=== PATIENT | male | born 1930 | race Caucasian/White ===

== ENCOUNTER 2016-11-26 11:51 | Inpatient (IN) | payer MEDICARE, OTHER ==
[~2016-11-26] VITALS: Ht 182.9 cm; Wt 68.2 kg
[~2016-11-26 11:51] MED LIST: ALDACTONE25 MG PO; BACTRIM 400-801 TAB PO; BAYER CHEWABLE81 MG PO; CALCIUM 250+D T1 TAB PO; COMBIVENT RESPIM4 GM INH; COUMADIN3 MG PO; COUMADIN6 MG PO; CRESTOR5 MG PO; FERROUS SULFAT325 MG PO; FISH OIL 500 MG1 CAP PO; FLORAJEN3 CAPS460 MG PO; FOSINOPRIL SODI40 MG PO; GLUCOPHAGE1000 MG PO; GLUCOPHAGE500 MG PO; HYDROCODONE-APA1 TAB PO; LASIX20 MG PO; LASIX40 MG PO; LEVAQUIN250 MG PO; LEVAQUIN500 MG PO; MUCINEX600 MG PO; MULTIPLE VITAMI1 TA1 PO; SYNTHROID25 MCG PO; VITAMIN B COMPL1 TAB PO; ZPAK PO
[2016-11-26 12:56] LABS: BASOPHILS 0.3 % (0-2); EOSINOPHILS 2.6 % (0-7); IMMATURE GRANULOCYTES 0.3 % (0-5); LYMPHOCYTES 26.6 % (15-50); MCH 29.8 pg (26.0-34.0); MCHC 29.5 g/dL (31.0-37.0); NEUTROPHILS 58.2 % (40-80); RDW 19.5 % (11.5-14.5); WBC 6.5 10x3/uL (4.8-10.8)
[2016-11-26 13:06] LABS: APTT 39.3 SECONDS (22.8-39.4); INR 2.76 (0.85-1.17); PROTIME 29.3 SECONDS (11.6-15.0)
[2016-11-26 13:13] LABS: ALBUMIN 3.1 g/dL (3.4-5.0); ANION GAP 15.9 mmol/L (8-16); BILIRUBIN - TOTAL 0.42 mg/dL (0.2-1.3); CALCIUM 8.7 mg/dL (8.5-10.1); CARBON DIOXIDE 22.3 mmol/L (21.0-32.0); CREATININE - SERUM 1.9 mg/dL (0.6-1.3); POTASSIUM - SERUM 5.2 mmol/L (3.5-5.1); PROTEIN - SERUM 7.8 g/dL (6.4-8.2)
[2016-11-26 13:23] LABS: HEMATOCRIT 19.3 % (42.0-54.0); HEMOGLOBIN 5.7 g/dL (13.5-17.5); PLATELET COUNT 300 10x3/uL (130-400); RBC 1.91 10x6/uL (4.20-6.10)
[2016-11-26 17:41] VITALS: BP 124/53; BMI 20.4
--- NOTE | 2016-11-26 17:57 | NUR ---
PT AOX4 RESP EVEN AND NONLABORED LUNG SOUNDS CLEAR IV TO RIGHT FOREARM PATENT AND INTACT AT THIS TIME SRX2 BED AT LOWEST SETTING CALL LIGHT WITHIN REACH
--- NOTE | 2016-11-26 19:20 | NUR ---
RECIEVED SHIFT REPORT. PT IS LYING IN BED. ALERT AND ORIENTED AND ABLE TO VERBALIZE NEEDS. IV IS PATENT AND FLUIDS ARE RUNNING PER ORDER. IV IS PATENT AND BLOOD IS FLUSHING AT THIS TIME. PT IS AMBULATORY WITH ASSISTANCE OF PROSTHETIC. PT DENIES ANY PAIN AT THIS TIME. NO NEEDS ARE VERBALIZED AT THIS TIME. WILL CONTINUE TO MONITOR. SIDE RAILS ARE UP X 2. BED IS IN LOWEST POSITION. CALL LIGHT IS WITHIN REACH.
[2016-11-26 20:00] VITALS: BP 130/68
--- NOTE | 2016-11-26 20:52 | NUR ---
SHIFT ASSESSMENT COMPLETED. NIGHT MEDS GIVEN WITH NO PROBLEMS. NO NEEDS ARE VOICED. WILL MONITOR. SIDE RAILS X 2. BED LOW. CALL LIGHT IN REACH.
[2016-11-27] VITALS (11 sets, daily range): BP systolic 105–141; BP diastolic 46–69; Ht 182.9 cm; Wt 68.2 kg
--- NOTE | 2016-11-27 | NUR ---
LYING IN BED,WITHOUT DISTRESS.DENIES NEEDS AT PRESENT.CALL LIGHT IN REACH
--- NOTE | 2016-11-27 03:00 | NUR ---
RESTING NOW.REQUESTED DOOR BE CLOSED.STATES YELLING IS KEEPING HIM AWAKE. CALL LIGHT IN REACH
[2016-11-27 05:59] LABS: BASOPHILS 0.3 % (0-2); IMMATURE GRANULOCYTES 0.2 % (0-5); MCH 30.6 pg (26.0-34.0); MCHC 31.7 g/dL (31.0-37.0); MEAN PLATELET VOLUME 9.4 fL (7.4-10.4); MONOCYTES 20.1 % (2-11); NEUTROPHILS 53.4 % (40-80); PLATELET COUNT 277 10x3/uL (130-400); RDW 18.3 % (11.5-14.5); WBC 6.6 10x3/uL (4.8-10.8)
[2016-11-27 06:03] LABS: HEMATOCRIT 24.6 % (42.0-54.0); HEMOGLOBIN 7.8 g/dL (13.5-17.5); INR 2.99 (0.85-1.17); MCV 96.5 fL (80.0-100.0); PROTIME 31.3 SECONDS (11.6-15.0); RBC 2.55 10x6/uL (4.20-6.10)
[2016-11-27 06:13] LABS: ALBUMIN 2.7 g/dL (3.4-5.0); ANION GAP 12.7 mmol/L (8-16); BILIRUBIN - TOTAL 1.11 mg/dL (0.2-1.3); CALCIUM 8.1 mg/dL (8.5-10.1); CARBON DIOXIDE 22.3 mmol/L (21.0-32.0); CREATININE - SERUM 1.5 mg/dL (0.6-1.3); PROTEIN - SERUM 6.9 g/dL (6.4-8.2)
--- NOTE | 2016-11-27 06:25 | NUR ---
REMAINS WITHOUT NEEDS,WITHOUT CHANGE.CONT PLAN OF CARE
--- NOTE | 2016-11-27 07:30 | NUR ---
RECIEVED PT DURING WALKING ROUNDS. PT RESTING IN BED WITH NO COMPLAINTS OF PAIN OR DISCOMFORT AT THIS TIME. ASSESSMENT DONE PER FLOWSHEET. BED IN LOW POSITION AND CALL LIGHT WITHIN REACH. WILL CONTINUE TO MONITOR.
--- NOTE | 2016-11-27 12:00 | NUR ---
FIRST UNIT OF PRBC'S STARTED AT THIS TIME, BLOOD PRODUCT VERIFIED WITH SHERMAN BRIDGES LPN. WILL MONITOR VITALS PER PROTOCOL.
--- NOTE | 2016-11-27 14:35 | NUR ---
FIRST UNIT OF PRBC'S COMPLETED AND NO SIGNS OF TRANSFUSION REACTION NOTED. WILL CONTINUE TO MONITOR.
--- NOTE | 2016-11-27 19:45 | NUR ---
PATIENT RESTING IN BED AND DENIES NEEDS AT THIS TIME. BED IN LOWEST POSITION AND CALL LIGHT WITHIM REACH. ENCOURAGED THE PATIENT TO CALL IF HE HAS NEEDS.
[2016-11-28 00:10] VITALS: BP 115/57
--- NOTE | 2016-11-28 00:11 | NUR ---
PATIENT IS CONFUSED AT THIS TIME AND DOES NOT KNOW WHERE SHE IS. I REORIENTED THE PATIENT. PATIENT'S BED IN LOWEST POSITION, CALL LIGHT WITHIN REACH, AND BOX ALARM IS ON AND ATTACHED TO THE PATIENT. ENCOURAGED THE PATIENT TO CALL IF SHE HAS NEEDS.
[2016-11-28 04:00] VITALS: BP 118/53
[2016-11-28 06:19] LABS: BASOPHILS 0.3 % (0-2); EOSINOPHILS 3.8 % (0-7); IMMATURE GRANULOCYTES 0.2 % (0-5); LYMPHOCYTES 21.1 % (15-50); MCHC 32.1 g/dL (31.0-37.0); MEAN PLATELET VOLUME 9.5 fL (7.4-10.4); MONOCYTES 20.6 % (2-11); PLATELET COUNT 239 10x3/uL (130-400); WBC 6.6 10x3/uL (4.8-10.8)
[2016-11-28 06:25] LABS: HEMATOCRIT 30.2 % (42.0-54.0); HEMOGLOBIN 9.7 g/dL (13.5-17.5); MCV 93.5 fL (80.0-100.0); RBC 3.23 10x6/uL (4.20-6.10)
[2016-11-28 06:26] LABS: INR 2.75 (0.85-1.17); PROTIME 29.3 SECONDS (11.6-15.0)
[2016-11-28 06:35] LABS: ALBUMIN 2.7 g/dL (3.4-5.0); ANION GAP 10.6 mmol/L (8-16); BILIRUBIN - TOTAL 1.1 mg/dL (0.2-1.3); CREATININE - SERUM 1.5 mg/dL (0.6-1.3); POTASSIUM - SERUM 4.6 mmol/L (3.5-5.1); PROTEIN - SERUM 6.5 g/dL (6.4-8.2)
--- NOTE | 2016-11-28 07:30 | NUR ---
RECIEVED PT DURING WALKING ROUNDS. PT RESTING IN BED WITH NO COMPLAINTS OF PAIN OR DISCOMFORT. ASSESSMENT DONE PER FLOWSHEET. BED IN LOW POSITION AND CALL LIGHT WITHIN REACH. WILL CONTINUE TO MONITOR.
[2016-11-28 10:19] VITALS: BP 105/65
[2016-11-28 14:08] VITALS: BP 110/74
[2016-11-28] MEDS ORDERED: CARAFATE1 G PO (14:23)
[2016-11-28] MEDS ORDERED: PROTONIX40 MG PO (14:23)
--- NOTE | 2016-11-28 15:54 | NUR ---
IV REMOVED AND DISCHARGE INSTRUCTIONS GIVEN, PT DISCHARGED VIA WHEELCHAIR TO HOME WITH A FAMILY MEMBER.
== END 2016-11-28 15:55 | disposition home or self-care (01) | DRG 378 ==
LOC: D.ER 11:51 → D.MS 13:44
PROVIDERS: Emergency Medicine; Internal Medicine Gastroenterology; ADMIT Emergency Medicine
PROC: 0W3P8ZZ Control Bleeding in Gastrointestinal Tract, Via Natural or Artificial Opening Endoscopic (ICD-10-PCS; principal; 2016-11-26 15:45)
DX: K25.4 Chronic or unspecified gastric ulcer with hemorrhage (principal); I50.22 Chronic systolic (congestive) heart failure; D62 Acute posthemorrhagic anemia; K26.4 Chronic or unspecified duodenal ulcer with hemorrhage; I48.91 Unspecified atrial fibrillation; Z79.01 Long term (current) use of anticoagulants; I11.0 Hypertensive heart disease with heart failure; E11.65 Type 2 diabetes mellitus with hyperglycemia; Z79.84 Long term (current) use of oral hypoglycemic drugs; E78.5 Hyperlipidemia, unspecified; E03.9 Hypothyroidism, unspecified; E87.5 Hyperkalemia

== ENCOUNTER 2016-12-10 09:43 | Inpatient (IN) | payer MEDICARE, OTHER ==
[~2016-12-10] VITALS: Ht 182.9 cm; Wt 70.4 kg
[~2016-12-10 09:43] MED LIST changes: +CARAFATE1 G PO; +PROTONIX40 MG PO
[2016-12-10 10:37] LABS: BASOPHILS 0.4 % (0-2); EOSINOPHILS 5.2 % (0-7); HEMATOCRIT 28.9 % (42.0-54.0); IMMATURE GRANULOCYTES 0.2 % (0-5); LYMPHOCYTES 26.4 % (15-50); MCH 29.3 pg (26.0-34.0); MCHC 31.1 g/dL (31.0-37.0); MCV 94.1 fL (80.0-100.0); MEAN PLATELET VOLUME 9.7 fL (7.4-10.4); MONOCYTES 12.4 % (2-11); NEUTROPHILS 55.4 % (40-80); RBC 3.07 10x6/uL (4.20-6.10); RDW 16.3 % (11.5-14.5); WBC 4.8 10x3/uL (4.8-10.8)
[2016-12-10 10:43] LABS: PLATELET COUNT 183 10x3/uL (130-400)
[2016-12-10 11:07] LABS: APTT 61.8 SECONDS (22.8-39.4); INR 4.44 (0.85-1.17); PROTIME 42.9 SECONDS (11.6-15.0)
[2016-12-10 11:13] LABS: ALBUMIN 2.9 g/dL (3.4-5.0); ANION GAP 15.5 mmol/L (8-16); BILIRUBIN - TOTAL 0.48 mg/dL (0.2-1.3); CALCIUM 8.7 mg/dL (8.5-10.1); CARBON DIOXIDE 20.8 mmol/L (21.0-32.0); CREATININE - SERUM 1.6 mg/dL (0.6-1.3); POTASSIUM - SERUM 5.3 mmol/L (3.5-5.1); PROTEIN - SERUM 7.5 g/dL (6.4-8.2)
[2016-12-10 13:29] VITALS: BP 142/64; BMI 21.4
[2016-12-10 13:37] VITALS: BP 142/64
[2016-12-10 20:00] VITALS: BP 149/59
[2016-12-10 22:00] LABS: BASOPHILS 0.4 % (0-2); EOSINOPHILS 5.3 % (0-7); HEMATOCRIT 27.4 % (42.0-54.0); HEMOGLOBIN 8.5 g/dL (13.5-17.5); LYMPHOCYTES 29.6 % (15-50); MCH 29.3 pg (26.0-34.0); MCV 94.5 fL (80.0-100.0); MEAN PLATELET VOLUME 9.4 fL (7.4-10.4); MONOCYTES 17.7 % (2-11); PLATELET COUNT 173 10x3/uL (130-400); RDW 16.3 % (11.5-14.5); WBC 4.5 10x3/uL (4.8-10.8)
[2016-12-11] VITALS: BP 116/71
[2016-12-11 03:43] VITALS: BP 123/58
[2016-12-11 05:41] LABS: BASOPHILS 0.9 % (0-2); EOSINOPHILS 5.4 % (0-7); HEMATOCRIT 27.1 % (42.0-54.0); HEMOGLOBIN 8.6 g/dL (13.5-17.5); IMMATURE GRANULOCYTES 0.2 % (0-5); LYMPHOCYTES 29.4 % (15-50); MCH 30.1 pg (26.0-34.0); MCHC 31.7 g/dL (31.0-37.0); MCV 94.8 fL (80.0-100.0); MEAN PLATELET VOLUME 9.8 fL (7.4-10.4); MONOCYTES 14.3 % (2-11); NEUTROPHILS 49.8 % (40-80); PLATELET COUNT 181 10x3/uL (130-400); RBC 2.86 10x6/uL (4.20-6.10); RDW 16.4 % (11.5-14.5); WBC 4.4 10x3/uL (4.8-10.8)
[2016-12-11 05:59] LABS: ALBUMIN 2.7 g/dL (3.4-5.0); ANION GAP 17.4 mmol/L (8-16); BILIRUBIN - TOTAL 0.6 mg/dL (0.2-1.3); CALCIUM 8.9 mg/dL (8.5-10.1); CARBON DIOXIDE 20.1 mmol/L (21.0-32.0); CREATININE - SERUM 1.4 mg/dL (0.6-1.3); POTASSIUM - SERUM 5.5 mmol/L (3.5-5.1); PROTEIN - SERUM 6.9 g/dL (6.4-8.2)
[2016-12-11 08:18] VITALS: BP 129/46
[2016-12-11 13:00] VITALS: Ht 182.9 cm; Wt 70.4 kg
[2016-12-11 13:03] VITALS: BP 141/51
[2016-12-11 13:55] LABS: BASOPHILS 0.8 % (0-2); EOSINOPHILS 4.7 % (0-7); HEMATOCRIT 28.2 % (42.0-54.0); HEMOGLOBIN 8.8 g/dL (13.5-17.5); IMMATURE GRANULOCYTES 0.2 % (0-5); LYMPHOCYTES 25.5 % (15-50); MCH 29.7 pg (26.0-34.0); MCHC 31.2 g/dL (31.0-37.0); MCV 95.3 fL (80.0-100.0); MEAN PLATELET VOLUME 9.5 fL (7.4-10.4); MONOCYTES 15.5 % (2-11); NEUTROPHILS 53.3 % (40-80); PLATELET COUNT 176 10x3/uL (130-400); RBC 2.96 10x6/uL (4.20-6.10); RDW 16.3 % (11.5-14.5); WBC 4.7 10x3/uL (4.8-10.8)
[2016-12-11 14:20] LABS: INR 3.19 (0.85-1.17)
[2016-12-11 16:21] VITALS: BP 107/59
[2016-12-11 20:00] VITALS: BP 129/65
[2016-12-11 21:44] LABS: BASOPHILS 0.4 % (0-2); EOSINOPHILS 4.4 % (0-7); HEMATOCRIT 26.3 % (42.0-54.0); HEMOGLOBIN 8.2 g/dL (13.5-17.5); IMMATURE GRANULOCYTES 0.2 % (0-5); LYMPHOCYTES 23.5 % (15-50); MCH 29.4 pg (26.0-34.0); MCHC 31.2 g/dL (31.0-37.0); MCV 94.3 fL (80.0-100.0); MEAN PLATELET VOLUME 9.2 fL (7.4-10.4); NEUTROPHILS 54.5 % (40-80); PLATELET COUNT 176 10x3/uL (130-400); RBC 2.79 10x6/uL (4.20-6.10); RDW 16.2 % (11.5-14.5); WBC 4.8 10x3/uL (4.8-10.8)
[2016-12-12] VITALS (7 sets, daily range): BP systolic 114–139; BP diastolic 45–59
[2016-12-12 06:27] LABS: ALBUMIN 2.6 g/dL (3.4-5.0); ANION GAP 15.9 mmol/L (8-16); BILIRUBIN - TOTAL 0.5 mg/dL (0.2-1.3); CALCIUM 8.6 mg/dL (8.5-10.1); CARBON DIOXIDE 20.1 mmol/L (21.0-32.0); CREATININE - SERUM 1.3 mg/dL (0.6-1.3); PROTEIN - SERUM 6.7 g/dL (6.4-8.2)
[2016-12-13 04:04] VITALS: BP 132/62
[2016-12-13 05:16] LABS: BASOPHILS 0.8 % (0-2); EOSINOPHILS 5.7 % (0-7); HEMATOCRIT 23.9 % (42.0-54.0); LYMPHOCYTES 30.2 % (15-50); MCH 29.5 pg (26.0-34.0); MCV 95.2 fL (80.0-100.0); MEAN PLATELET VOLUME 10.3 fL (7.4-10.4); MONOCYTES 21.4 % (2-11); NEUTROPHILS 41.9 % (40-80); PLATELET COUNT 187 10x3/uL (130-400); RBC 2.51 10x6/uL (4.20-6.10); RDW 16.4 % (11.5-14.5); WBC 4.7 10x3/uL (4.8-10.8)
[2016-12-13 05:19] LABS: HEMOGLOBIN 7.4 g/dL (13.5-17.5)
[2016-12-13 05:40] LABS: ALBUMIN 2.5 g/dL (3.4-5.0); ANION GAP 14.4 mmol/L (8-16); BILIRUBIN - TOTAL 0.31 mg/dL (0.2-1.3); CALCIUM 8.2 mg/dL (8.5-10.1); CARBON DIOXIDE 21.3 mmol/L (21.0-32.0); CREATININE - SERUM 1.2 mg/dL (0.6-1.3); POTASSIUM - SERUM 4.7 mmol/L (3.5-5.1); PROTEIN - SERUM 6.7 g/dL (6.4-8.2)
[2016-12-13 08:57] VITALS: BP 129/59
[2016-12-13 12:35] VITALS: BP 120/50
[2016-12-13 15:25] VITALS: BP 118/54
[2016-12-13 19:00] VITALS: BP 137/64
[2016-12-14] VITALS: BP 142/64
[2016-12-14 04:00] VITALS: BP 120/49
[2016-12-14 05:06] LABS: INR 1.72 (0.85-1.17); PROTIME 20.1 SECONDS (11.6-15.0)
[2016-12-14 05:21] LABS: ALBUMIN 2.6 g/dL (3.4-5.0); ANION GAP 16.1 mmol/L (8-16); BILIRUBIN - TOTAL 0.9 mg/dL (0.2-1.3); CALCIUM 8.5 mg/dL (8.5-10.1); CARBON DIOXIDE 19.7 mmol/L (21.0-32.0); CREATININE - SERUM 1.1 mg/dL (0.6-1.3); POTASSIUM - SERUM 4.8 mmol/L (3.5-5.1); PROTEIN - SERUM 6.7 g/dL (6.4-8.2)
[2016-12-14 10:01] VITALS: BP 135/56
[2016-12-14 12:10] LABS: BASOPHILS 0.3 % (0-2); HEMATOCRIT 27.6 % (42.0-54.0); HEMOGLOBIN 8.8 g/dL (13.5-17.5); IMMATURE GRANULOCYTES 0.2 % (0-5); LYMPHOCYTES 21.9 % (15-50); MCH 30.6 pg (26.0-34.0); MCHC 31.9 g/dL (31.0-37.0); MCV 95.8 fL (80.0-100.0); MEAN PLATELET VOLUME 10.7 fL (7.4-10.4); MONOCYTES 21.2 % (2-11); NEUTROPHILS 51.4 % (40-80); PLATELET COUNT 209 10x3/uL (130-400); RBC 2.88 10x6/uL (4.20-6.10); RDW 16.6 % (11.5-14.5)
[2016-12-14 13:13] VITALS: BP 129/49
[2016-12-14 15:52] VITALS: BP 116/47
[2016-12-14 19:00] VITALS: BP 122/50
[2016-12-15] VITALS: BP 112/57
[2016-12-15 04:00] VITALS: BP 130/58
[2016-12-15 05:29] LABS: BASOPHILS 0.2 % (0-2); EOSINOPHILS 4.2 % (0-7); HEMATOCRIT 27.7 % (42.0-54.0); HEMOGLOBIN 8.8 g/dL (13.5-17.5); IMMATURE GRANULOCYTES 0.2 % (0-5); LYMPHOCYTES 23.2 % (15-50); MCH 29.9 pg (26.0-34.0); MCHC 31.8 g/dL (31.0-37.0); MCV 94.2 fL (80.0-100.0); MEAN PLATELET VOLUME 10.7 fL (7.4-10.4); MONOCYTES 20.7 % (2-11); NEUTROPHILS 51.5 % (40-80); PLATELET COUNT 232 10x3/uL (130-400); RBC 2.94 10x6/uL (4.20-6.10); RDW 16.5 % (11.5-14.5)
[2016-12-15 05:46] LABS: ALBUMIN 2.6 g/dL (3.4-5.0); ANION GAP 15.2 mmol/L (8-16); BILIRUBIN - TOTAL 0.9 mg/dL (0.2-1.3); CALCIUM 8.5 mg/dL (8.5-10.1); CARBON DIOXIDE 19.4 mmol/L (21.0-32.0); CREATININE - SERUM 1.2 mg/dL (0.6-1.3); POTASSIUM - SERUM 4.6 mmol/L (3.5-5.1); PROTEIN - SERUM 6.8 g/dL (6.4-8.2)
[2016-12-15 08:45] VITALS: BP 122/62
[2016-12-15 11:28] LABS: INR 1.43 (0.85-1.17); PROTIME 17.4 SECONDS (11.6-15.0)
[2016-12-15 12:33] VITALS: BP 138/58
[2016-12-15 15:25] VITALS: BP 139/68
[2016-12-16 00:20] VITALS: BP 141/52
[2016-12-16 04:00] VITALS: BP 154/87
[2016-12-16 06:20] LABS: HEMATOCRIT 26.7 % (42.0-54.0); HEMOGLOBIN 8.5 g/dL (13.5-17.5); MCH 30.1 pg (26.0-34.0); MCHC 31.8 g/dL (31.0-37.0); MCV 94.7 fL (80.0-100.0); MEAN PLATELET VOLUME 10.4 fL (7.4-10.4); PLATELET COUNT 240 10x3/uL (130-400); RBC 2.82 10x6/uL (4.20-6.10); RDW 16.8 % (11.5-14.5); WBC 5.6 10x3/uL (4.8-10.8)
[2016-12-16 06:29] LABS: INR 1.41 (0.85-1.17); PROTIME 17.1 SECONDS (11.6-15.0)
[2016-12-16 06:48] LABS: ALBUMIN 2.4 g/dL (3.4-5.0); ANION GAP 14.6 mmol/L (8-16); BILIRUBIN - TOTAL 0.6 mg/dL (0.2-1.3); CALCIUM 8.1 mg/dL (8.5-10.1); CARBON DIOXIDE 20.6 mmol/L (21.0-32.0); CREATININE - SERUM 1.2 mg/dL (0.6-1.3); POTASSIUM - SERUM 4.2 mmol/L (3.5-5.1); PROTEIN - SERUM 6.8 g/dL (6.4-8.2)
[2016-12-16 07:37] LABS: ANISOCYTOSIS OCC; BASOPHILS 1 % (0-2); EOSINOPHILS 5 % (0-7); LYMPHOCYTES 24 % (15-50); MONOCYTES 15 % (2-11); NEUTROPHILS 55 % (40-80); PLATELET ESTIMATE NORMAL
[2016-12-16 08:06] VITALS: BP 133/67
[2016-12-16 12:25] VITALS: BP 145/64
[2016-12-16 15:54] VITALS: BP 147/57
[2016-12-16 19:00] VITALS: BP 129/54
[2016-12-17 04:00] VITALS: BP 122/60
[2016-12-17 05:08] LABS: BASOPHILS 0.7 % (0-2); EOSINOPHILS 4.2 % (0-7); HEMATOCRIT 27.4 % (42.0-54.0); HEMOGLOBIN 8.9 g/dL (13.5-17.5); IMMATURE GRANULOCYTES 0.2 % (0-5); LYMPHOCYTES 23.1 % (15-50); MCH 30.4 pg (26.0-34.0); MCHC 32.5 g/dL (31.0-37.0); MCV 93.5 fL (80.0-100.0); MEAN PLATELET VOLUME 10.1 fL (7.4-10.4); MONOCYTES 21.7 % (2-11); NEUTROPHILS 50.1 % (40-80); PLATELET COUNT 246 10x3/uL (130-400); RBC 2.93 10x6/uL (4.20-6.10); RDW 16.7 % (11.5-14.5); WBC 5.7 10x3/uL (4.8-10.8)
[2016-12-17 05:17] LABS: INR 1.46 (0.85-1.17); PROTIME 17.7 SECONDS (11.6-15.0)
[2016-12-17 05:25] LABS: ALBUMIN 2.5 g/dL (3.4-5.0); ANION GAP 13.3 mmol/L (8-16); BILIRUBIN - TOTAL 0.65 mg/dL (0.2-1.3); CALCIUM 8.2 mg/dL (8.5-10.1); CARBON DIOXIDE 22.9 mmol/L (21.0-32.0); CREATININE - SERUM 1.1 mg/dL (0.6-1.3); POTASSIUM - SERUM 4.2 mmol/L (3.5-5.1); PROTEIN - SERUM 6.9 g/dL (6.4-8.2)
[2016-12-17 08:06] VITALS: BP 132/57
[2016-12-17] MEDS ORDERED: COUMADIN1 MG PO (11:53)
[2016-12-17] MEDS ORDERED: COLACE100 MG PO (11:54)
[2016-12-17 12:46] VITALS: BP 118/59
== END 2016-12-17 15:08 | disposition home health service (06) | DRG 813 ==
LOC: D.ER 09:43 → OBSVTIME 12:55 → D.MS 12:55
PROVIDERS: Emergency Medicine; Internal Medicine Gastroenterology; ADMIT Family Medicine
DX: D68.32 Hemorrhagic disorder due to extrinsic circulating anticoagulants (principal); I50.22 Chronic systolic (congestive) heart failure; D62 Acute posthemorrhagic anemia; N17.9 Acute kidney failure, unspecified; I48.91 Unspecified atrial fibrillation; Z79.01 Long term (current) use of anticoagulants; I11.0 Hypertensive heart disease with heart failure; E11.40 Type 2 diabetes mellitus with diabetic neuropathy, unspecified; E11.51 Type 2 diabetes mellitus with diabetic peripheral angiopathy without gangrene; E87.5 Hyperkalemia; E78.5 Hyperlipidemia, unspecified; E03.9 Hypothyroidism, unspecified; I35.0 Nonrheumatic aortic (valve) stenosis; I25.10 Atherosclerotic heart disease of native coronary artery without angina pectoris; Z95.1 Presence of aortocoronary bypass graft; K59.00 Constipation, unspecified

== ENCOUNTER 2017-07-26 09:39 | Inpatient (IN) | payer MEDICARE, OTHER ==
[~2017-07-26] VITALS: Ht 182.9 cm; Wt 75.0 kg
[2017-07-26] VITALS (7 sets, daily range): BP systolic 116–145; BP diastolic 70–80; BMI 22.0
--- NOTE | ~2017-07-26 | EC ---
PATIENT:HERBERT JEWELL DATE OF SERVICE: 07/26/17 SEX: M MEDICAL RECORD: [id number] DATE OF : 31 LOCATION:[facility] AGE OF PATIENT: 87 ADMISSION DATE: 07/26/17 REFERRING PHYSICIAN: INTERPRETING PHYSICIAN: EDILMA TREVIZO MD ECHOCARDIOGRAM REPORT ECHO CHARGES 4 ECHO COMPLETE Date: 07/28 CLINICAL DIAGNOSIS: CHF ECHOCARDIOGRAPHIC MEASUREMENTS (adult normal given) AC root (d.<3.7cm) 3.5 cm LV Septum d (<1.2 cm> 1.5 cm Valve Excursion 0.6 cm LV Septum (systole) 1.8 cm Left Atria (s.<4.0cm> 4.5 cm LVPW d(<1.2cm) 1.4 cm RV (d.<2.3cm) 4.1 cm LVPW (sytole) 1.8 cm LV diastole(<5.6CM) 6.2 cm MV E-F(>70mm/sec) cm LV systole 4.8 cm LVOT Diameter 2.3 cm MV exc.(>10mm) cm Est.ejection fraction (50-75%) % DOPPLER: LVIT cm/sec A cm/sec E 151 cm/sec LA cm/sec RVSP 55.0 mmHg LVOT 67.0 cm/sec AOP1/2T m/s Asc. Ao 300 cm/sec RVOT 85.0 cm/sec RA cm/sec PA 86.0 cm/sec AV Gradient Peak 36.1 mmHg AV Mean 17.0 mmHg AV Area 0.7 cm MV Gradient Peak 11.0 mmHg MV Mean 2.9 mmHg MV Area cm COMMENTS: Marine Cargo Specialist: 1 ERMELINDA GOETZOE Duct Maker: 2 Dr. Wheeler TAPE# PACS Pericardial Effusion N DATE OF SERVICE: PROCEDURE: Echocardiogram. FINDINGS: 1. Left ventricular chamber size is dilated. Left ventricular systolic function is moderately reduced, overall ejection fraction estimated at 30%. 2. Left atrium is enlarged at 4.5 cm. Right atrium and right ventricular chamber sizes are as well moderately dilated. 3. Valvular structures: Aortic valve demonstrates moderate calcific aortic ECHOCARDIOGRAM REPORT [id number] HERBERT JEWELL stenosis, valve area calculates 0.7 cm-squared with a gradient of 36 mm across the valve. The remaining valvular structures have normal structure and motion. 4. Doppler interrogation elsewise reveals moderate mitral regurgitation, moderate tricuspid regurgitation, no other valvular insufficiency or stenosis and pulmonary systolic pressure is elevated estimated at 55 mmHg. 5. No evidence of pericardial effusion or left ventricular thrombus. TRANSINT:[id number] Voice Confirmation ID: [id number] DOCUMENT ID: [id number] EDILMA TREVIZO MD at 0956 CC: [id number] DICTATION DATE: 07/28/17 1216 DOMESTIC MAID: 07/28/17 1429 DIS IN 07/30/17 [address] [place] [address]
[~2017-07-26 09:39] MED LIST changes: +COLACE100 MG PO; +COUMADIN1 MG PO
[2017-07-26 10:57] LABS: BASOPHILS 0.7 % (0-2); EOSINOPHILS 3.6 % (0-7); HEMATOCRIT 27.5 % (42.0-54.0); HEMOGLOBIN 8.4 g/dL (13.5-17.5); IMMATURE GRANULOCYTES 0.2 % (0-5); LYMPHOCYTES 23.1 % (15-50); MCHC 30.5 g/dL (31.0-37.0); MCV 98.2 fL (80.0-100.0); MEAN PLATELET VOLUME 10.7 fL (7.4-10.4); MONOCYTES 19.9 % (2-11); NEUTROPHILS 52.5 % (40-80); PLATELET COUNT 215 10x3/uL (130-400); RDW 14.7 % (11.5-14.5); WBC 5.9 10x3/uL (4.8-10.8)
[2017-07-26 11:12] LABS: ALBUMIN 3.5 g/dL (3.4-5.0); ANION GAP 16.2 mmol/L (8-16); BILIRUBIN - TOTAL 0.46 mg/dL (0.2-1.3); CARBON DIOXIDE 22.1 mmol/L (21.0-32.0); CREATININE - SERUM 2.2 mg/dL (0.6-1.3); POTASSIUM - SERUM 5.3 mmol/L (3.5-5.1); PROTEIN - SERUM 8.3 g/dL (6.4-8.2)
[2017-07-26 15:01] LABS: INR 1.99 (0.85-1.17)
[2017-07-27] VITALS (24 sets, daily range): BP systolic 101–152; BP diastolic 49–89; Ht 182.9 cm; Wt 75.0 kg
[2017-07-27 06:47] LABS: BASOPHILS 0.4 % (0-2); EOSINOPHILS 3.9 % (0-7); HEMATOCRIT 31.2 % (42.0-54.0); HEMOGLOBIN 9.7 g/dL (13.5-17.5); IMMATURE GRANULOCYTES 0.2 % (0-5); LYMPHOCYTES 31.5 % (15-50); MCH 29.1 pg (26.0-34.0); MCHC 31.1 g/dL (31.0-37.0); MCV 93.7 fL (80.0-100.0); MEAN PLATELET VOLUME 10.9 fL (7.4-10.4); MONOCYTES 17.9 % (2-11); NEUTROPHILS 46.1 % (40-80); PLATELET COUNT 200 10x3/uL (130-400); RBC 3.33 10x6/uL (4.20-6.10); RDW 17.4 % (11.5-14.5); WBC 5.4 10x3/uL (4.8-10.8)
[2017-07-27 06:50] LABS: ALBUMIN 3.2 g/dL (3.4-5.0); ANION GAP 16.5 mmol/L (8-16); BILIRUBIN - TOTAL 0.87 mg/dL (0.2-1.3); CALCIUM 8.7 mg/dL (8.5-10.1); CREATININE - SERUM 1.7 mg/dL (0.6-1.3); POTASSIUM - SERUM 5.5 mmol/L (3.5-5.1); PROTEIN - SERUM 7.7 g/dL (6.4-8.2)
[2017-07-27 06:57] LABS: INR 1.77 (0.85-1.17); PROTIME 20.1 SECONDS (11.6-15.0)
[2017-07-28] VITALS (13 sets, daily range): BP systolic 100–157; BP diastolic 55–75
[2017-07-28 05:02] LABS: BASOPHILS 0.3 % (0-2); EOSINOPHILS 3.5 % (0-7); HEMATOCRIT 30.8 % (42.0-54.0); HEMOGLOBIN 9.6 g/dL (13.5-17.5); IMMATURE GRANULOCYTES 0.2 % (0-5); LYMPHOCYTES 26.8 % (15-50); MCH 29.2 pg (26.0-34.0); MCHC 31.2 g/dL (31.0-37.0); MCV 93.6 fL (80.0-100.0); MEAN PLATELET VOLUME 10.7 fL (7.4-10.4); MONOCYTES 23.2 % (2-11); PLATELET COUNT 179 10x3/uL (130-400); RBC 3.29 10x6/uL (4.20-6.10); RDW 16.7 % (11.5-14.5); WBC 5.9 10x3/uL (4.8-10.8)
[2017-07-28 05:11] LABS: INR 1.72 (0.85-1.17); PROTIME 19.7 SECONDS (11.6-15.0)
[2017-07-28 05:31] LABS: ALBUMIN 2.9 g/dL (3.4-5.0); ANION GAP 14.5 mmol/L (8-16); BILIRUBIN - TOTAL 0.9 mg/dL (0.2-1.3); CALCIUM 8.3 mg/dL (8.5-10.1); CARBON DIOXIDE 20.5 mmol/L (21.0-32.0); CREATININE - SERUM 1.6 mg/dL (0.6-1.3); MAGNESIUM - SERUM 1.8 mg/dL (1.8-2.4); PHOSPHOROUS 3.4 mg/dL (2.5-4.9); PROTEIN - SERUM 7.2 g/dL (6.4-8.2)
[2017-07-29 01:06] VITALS: BP 138/64
[2017-07-29 04:47] VITALS: BP 140/60
[2017-07-29 07:13] LABS: BASOPHILS 0.3 % (0-2); EOSINOPHILS 3.4 % (0-7); HEMATOCRIT 32.7 % (42.0-54.0); HEMOGLOBIN 10.1 g/dL (13.5-17.5); LYMPHOCYTES 24.7 % (15-50); MCH 29.2 pg (26.0-34.0); MCHC 30.9 g/dL (31.0-37.0); MCV 94.5 fL (80.0-100.0); MEAN PLATELET VOLUME 11.2 fL (7.4-10.4); MONOCYTES 19.2 % (2-11); NEUTROPHILS 52.4 % (40-80); PLATELET COUNT 185 10x3/uL (130-400); RBC 3.46 10x6/uL (4.20-6.10); WBC 6.5 10x3/uL (4.8-10.8)
[2017-07-29 07:24] LABS: ANION GAP 16.6 mmol/L (8-16); BILIRUBIN - TOTAL 1.07 mg/dL (0.2-1.3); CALCIUM 8.3 mg/dL (8.5-10.1); CARBON DIOXIDE 19.4 mmol/L (21.0-32.0); CREATININE - SERUM 1.5 mg/dL (0.6-1.3); INR 1.54 (0.85-1.17); PROTEIN - SERUM 7.6 g/dL (6.4-8.2)
[2017-07-29 08:02] VITALS: BP 138/59
[2017-07-29 12:24] VITALS: BP 150/61
[2017-07-29 15:27] VITALS: BP 148/60
[2017-07-29 20:32] VITALS: BP 129/59
[2017-07-30 00:56] VITALS: BP 148/57
[2017-07-30 04:44] VITALS: BP 146/74
[2017-07-30 04:56] LABS: BASOPHILS 0.4 % (0-2); EOSINOPHILS 3.6 % (0-7); HEMATOCRIT 30.4 % (42.0-54.0); HEMOGLOBIN 9.5 g/dL (13.5-17.5); IMMATURE GRANULOCYTES 0.4 % (0-5); LYMPHOCYTES 26.2 % (15-50); MCH 29.1 pg (26.0-34.0); MCHC 31.3 g/dL (31.0-37.0); MCV 93.3 fL (80.0-100.0); MEAN PLATELET VOLUME 10.6 fL (7.4-10.4); MONOCYTES 18.3 % (2-11); NEUTROPHILS 51.1 % (40-80); PLATELET COUNT 176 10x3/uL (130-400); RBC 3.26 10x6/uL (4.20-6.10); RDW 15.5 % (11.5-14.5); WBC 5.6 10x3/uL (4.8-10.8)
[2017-07-30 05:12] LABS: INR 1.54 (0.85-1.17)
[2017-07-30 05:21] LABS: ALBUMIN 2.9 g/dL (3.4-5.0); ANION GAP 16.5 mmol/L (8-16); BILIRUBIN - TOTAL 0.91 mg/dL (0.2-1.3); CARBON DIOXIDE 19.1 mmol/L (21.0-32.0); CREATININE - SERUM 1.5 mg/dL (0.6-1.3); POTASSIUM - SERUM 4.6 mmol/L (3.5-5.1); PROTEIN - SERUM 7.3 g/dL (6.4-8.2)
[2017-07-30 08:39] VITALS: BP 141/51
[2017-07-30 13:09] VITALS: BP 138/63
[2017-07-30] MEDS ORDERED: XOPENEX 0.0.63 MG/3 UPD (14:23)
[2017-07-30] MEDS ORDERED: ATROVENT 0.02%2.5 ML UPD (14:23)
[2017-07-30] MEDS ORDERED: BROVANA15 MCG/2 M INH (14:23)
[2017-07-30] MEDS ORDERED: TESSALON PERLE100 MG PO (14:23)
[2017-07-30] MEDS ORDERED: METOPROLOL TART50 MG PO (14:23)
[2017-07-30] MEDS ORDERED: RACEMIC EPI 2.0.5 ML INH (14:23)
[2017-07-30] MEDS ORDERED: PULMICORT0.5 MG/21 UPD (14:24)
[2017-07-30] MEDS ORDERED: HUMALOG 30100 UNITS/ SC (14:24)
[2017-07-30] MEDS ORDERED: AFRIN NASAL SPR15 ML NASAL (14:24)
[2017-07-30] MEDS ORDERED: SINGULAIR10 MG PO (14:24)
[2017-07-30] MEDS ORDERED: MUCINEX DM ER1 EAC1 PO (14:24)
[2017-07-30] MEDS ORDERED: CARAFATE1 G/10 ML PO (14:24)
== END 2017-07-30 18:30 | DRG 377 ==
LOC: D.ER 09:39 → D.ICU 15:13 → D.MS 15:13 → D.EDHOLD 15:13 → D.ICU 16:32 → D.MS 07-28 17:50
PROVIDERS: Emergency Medicine; Family Medicine; Internal Medicine Gastroenterology; Physician Assistant
PROC: 0DJ08ZZ Inspection of Upper Intestinal Tract, Via Natural or Artificial Opening Endoscopic (ICD-10-PCS; principal; 2017-07-27 15:00)
DX: K29.71 Gastritis, unspecified, with bleeding (principal); I50.23 Acute on chronic systolic (congestive) heart failure; D62 Acute posthemorrhagic anemia; I13.0 Hypertensive heart and chronic kidney disease with heart failure and stage 1 through stage 4 chronic kidney disease, or unspecified chronic kidney disease; N17.9 Acute kidney failure, unspecified; J44.1 Chronic obstructive pulmonary disease with (acute) exacerbation; J98.11 Atelectasis; D50.9 Iron deficiency anemia, unspecified; E11.22 Type 2 diabetes mellitus with diabetic chronic kidney disease; N18.9 Chronic kidney disease, unspecified; E78.5 Hyperlipidemia, unspecified; E87.5 Hyperkalemia; E03.9 Hypothyroidism, unspecified; I27.20 Pulmonary hypertension, unspecified; Z95.1 Presence of aortocoronary bypass graft; Z89.512 Acquired absence of left leg below knee; I25.10 Atherosclerotic heart disease of native coronary artery without angina pectoris; I73.9 Peripheral vascular disease, unspecified; I35.0 Nonrheumatic aortic (valve) stenosis; K92.1 Melena; Z85.46 Personal history of malignant neoplasm of prostate; Z87.891 Personal history of nicotine dependence; Z77.090 Contact with and (suspected) exposure to asbestos; J30.9 Allergic rhinitis, unspecified; I48.2 Chronic atrial fibrillation; Z79.01 Long term (current) use of anticoagulants

== ENCOUNTER 2017-07-30 16:55 | Inpatient (IN) | payer MEDICARE, OTHER ==
[~2017-07-30] VITALS: Ht 182.9 cm; Wt 74.4 kg
--- NOTE | ~2017-07-30 | DS ---
PATIENT:HERBERT JEWELL :32 MEDICAL RECORD: [id number] DISCHARGE SUMMARY ADMISSION DATE: 07/30/17 DISCHARGE DATE: 08/03/17 This is a discharge dated 08/03/2017 from inpatient rehabilitation. PRIMARY DIAGNOSIS: Decreased functional ability and ability to provide activities of daily living secondary to weakness and debility with rrwjq-am-ikewvgb systolic congestive heart failure. SECONDARY DIAGNOSES: 1. Atrial fibrillation. 2. Coronary artery disease. 3. Aortic stenosis. 4. Chronic kidney disease. 5. History of prostate cancer. 6. Neuropathy. 7. COPD. 8. Peripheral vascular disease. 9. Hypertension. 10. Hyperlipidemia. 11. Anemia, iron deficient. 12. Diabetes. 13. Hyponatremia. 14. Hyperkalemia. HOSPITAL COURSE: Full H&P is located elsewhere on the chart on this 87-year-old male who was admitted to inpatient rehab for physical therapy and occupational therapy to improve gait, transfer skills, bed mobility, and activities of daily living to a modified independent level. He was evaluated by PT and OT and their plans of care were followed. He required nursing home care for observation and assessment and medication administration. Fingerstick blood sugars were monitored throughout his hospital stay with appropriate adjustment in medications as needed. Electrolytes were managed by protocol. He was on nebulized medications for respiratory support. He was cooperative with therapies, progressing towards goals. Case management was involved for discharge planning. He was considered stable for discharge on 08/03/2017. DISCHARGE MEDICATIONS: As per discharge medication reconciliation. DISCHARGE DISPOSITION: The patient is discharged home. He will continue his current diet and level of activity and will follow up with primary care and specialists as directed. At least 30 minutes was spent in this discharge activity. TRANSINT:[id number] Voice Confirmation ID: [id number] DOCUMENT ID: [id number] Dictated By: HUNTER EASTMAN I have interviewed/examined the above patient and agree with these documented findings. DISCHARGE SUMMARY REPORT [id number] HERBERT JEWELL VANESSA CORDOBA MD at 1157 at 0940 CC: [id number] DICTATION DATE: 08/14/171816 ORDNANCE ARTIFICER HELPER: 08/15/17 1109 DIS IN 08/03/17 [place] [id number] [place], [place] [id number]
--- NOTE | ~2017-07-30 | RHP ---
PATIENT: HERBERT JEWELL MEDICAL RECORD: [id number] ACCOUNT: [id number] [facility] ADMISSION DATE: 07/30/17 REHABILITATION HISTORY AND PHYSICAL EXAMINATION POST ADMISSION PHYSICIAN EXAMINATION POST ADMISSION PHYSICAL EXAM AND HISTORY AND PHYSICAL DATE OF ADMISSION: 07/30/2017 ADMITTING DIAGNOSES: Mumpq-kp-grvmaix systolic heart failure. HISTORY OF PRESENT ILLNESS: The patient admitted to inpatient rehab secondary to scipy-nd-tfiuxsx systolic heart failure with elevated BUN of greater than 7000 and EF of 30%. He is an 87-year-old gentleman who presented to [facility] with low blood count, was directly sent to the ICU with an H&H of 8.5 and 27.5, having significant amount of black stools. He received 2 units of blood upon admit. Had a past medical history of CHF, gastroesophageal bleed, chronic AFib, coronary artery bypass grafting, peripheral arterial disease, PVD, hypertension, hyperlipidemia, aortic stenosis, hszcg-zl-aqkxzeq kidney disease, prostate cancer, diabetes with neuropathy and chronic anticoagulation on Coumadin. He has a history of GI bleed and is prescribed Carafate, but is not compliant with this and when he stopped taking it, he started bleeding. He underwent an EGD during his acute hospital stay that showed gastritis. His gastrointestinal bleed has resolved. He is followed by GI and pulmonary during his acute stay. He is currently on telemetry and is on O2 at 2 liters via nasal cannula. He has a left davyn-vyb-lcbh amputation and uses prosthesis and cane or rolling walker for ambulation, moderately independent with mobility. At home, he is independent with his ADLs. He is currently noted to have shortness of breath with use of oxygen. He is unsteady and weak with transfers and ambulation. Currently, setup for moderate assist for ADLs, moderate assist to total assist for mobility. He has been in our acute rehabilitation in the past and has done well. He plans to return home at his prior level of function or better if possible. COMORBIDITIES: Include hemoptysis, COPD, left lower lobe pneumonia, mild pulmonary hypertension, ex-smoker, acute blood loss anemia, history of asbestos exposure, allergic rhinitis, AFib, coronary artery disease, diabetes, peripheral arterial disease, hypertension, hyperlipidemia, prostate cancer, history of BKA, status post coronary artery bypass grafting, acute gastrointestinal bleed, acute blood loss anemia, acute melena, acute kidney injury, hyperkalemia, chronic hypothyroidism and chronic aortic stenosis. PAST MEDICAL HISTORY: Significant for neuropathy, numbness, right foot problems, diabetes, coronary artery bypass grafting, atrial fib, edema, coronary artery disease, peripheral vascular disease, aortic stenosis, pneumonia, tobacco use, prostate cancer, macular degeneration, bradycardia, history of constipation, and GI bleed. PAST SURGICAL HISTORY: Includes cataract surgery, coronary bypass grafting, left BKA, right leg femoral bypass surgery at the [facility] in 2006, and prostatectomy in 1995. ALLERGIES: LASIX. HISTORY AND PHYSICAL [id number] HERBERT JEWELL MEDICATIONS: Current medications include Coumadin 2 mg daily, Aldactone 25 mg daily, Crestor 5 mg daily, Protonix 40 mg daily, Afrin nasal spray p.r.n., multivitamin daily, Atrovent updrafts as needed, furosemide 20 mg daily, ferrous sulfate 325 mg daily, Brovana 15 mcg b.i.d., Carafate 1 g q. a.c. and at bedtime, racemic epinephrine as needed, Singulair 10 mg at bedtime, Lopressor 50 mg b.i.d., Xopenex 0.63 mg q.2 hours p.r.n. per respiratory therapy. He is on Combivent 2 puffs q.4 hours p.r.n., Humalog low resistant sliding scale. He is on Mucinex D 1 b.i.d., Colace 200 mg at bedtime, Pulmicort 0.5 mg b.i.d., Tessalon Perles 100 mg t.i.d., and MiraLax 17 g in 8 ounces of water daily. HABITS: No current alcohol or tobacco use. He does have a long history of tobacco use. FAMILY HISTORY: Noncontributory. SOCIAL HISTORY: The patient hopes to return back home and get back to his prior level of functioning. REVIEW OF SYSTEMS: GENERAL: Does complain of weakness and fatigue. HEENT: Does complain of cold, cough, and congestion. CARDIOVASCULAR: Denies any chest pain. LUNGS: Does complain of shortness of breath. PHYSICAL EXAMINATION: VITAL SIGNS: Stable, afebrile. GENERAL: A well-developed elderly gentleman in no acute distress, alert upon exam. HEENT: Normocephalic and atraumatic. Mucosa moist. NECK: Supple. No lymphadenopathy. LUNGS: Coarse breath sounds bilaterally. CARDIOVASCULAR: Irregular rate and rhythm. ABDOMEN: Benign. EXTREMITIES: No clubbing, cyanosis or edema. NEUROLOGIC: Slow to mentate, but intact. LABORATORY DATA: His white count is 6.3, H&H of 11 and 34 and platelet count was noted to be 186. Sodium is 136, potassium 5.1, BUN and creatinine of 25 and 1.7. Blood sugar is noted to be 152. His INR is 1.42. ASSESSMENT: This is an 87-year-old gentleman admitted to the rehab with a working diagnosis of CHF and also complicated by GI bleed. The patient has potential to make improvement. We instituted the following multidisciplinary therapies including, but not limited to physical, occupational, respiratory, speech, nutritional services, prosthetics and orthotics. Given his complex medical conditions and risk for more complications, rehabilitation services cannot be provided at a low level of care such as a skilled nurse facility. PLAN: 1. Admit to [facility] rehab for intensive inpatient therapy to include the following disciplines: A. Physical therapy to improve gait, all transfer skills and bed mobility to a modified independent level. B. Occupational therapy to improve activities of daily living to a modified independent level. HISTORY AND PHYSICAL [id number] HERBERT JEWELL C. Case management to assist with discharge planning and placement options. D. Nutrition to assist with nutritional needs. E. Rehabilitation nursing to assist in monitoring the patient's underlying medical conditions and to assist with any type bowel or bladder management. 2. The patient's current medical care and medications will be continued. 3. The patient will be placed on standard fall precautions. 4. I am going to watch his INR closely. 5. I am going to go and watch for any signs of GI bleed. 6. I will follow him up on Wednesday morning or earlier if necessary. TRANSINT:[id number] Voice Confirmation ID: [id number] DOCUMENT ID: [id number] COLT notes whether there has been none or any medical/functional change since admission: - No change since preadmission screen. COLT attests patient continues to be appropriate for IRF: - Continues to be appropriate. VANESSA CORDOBA MD at 3620 CC: [id number] DICTATION DATE: 07/31/1701 STATION INSTALLER AND REPAIRER: 07/31/17 1117 DIS IN 08/03/17 [facility] [address] [place] [id number]
[~2017-07-30 16:55] MED LIST changes: +AFRIN NASAL SPR15 ML NASAL; +ATROVENT 0.02%2.5 ML UPD; +BROVANA15 MCG/2 M INH; +CARAFATE1 G/10 ML PO; +HUMALOG 30100 UNITS/ SC; +METOPROLOL TART50 MG PO; +MUCINEX DM ER1 EAC1 PO; +PULMICORT0.5 MG/21 UPD; +RACEMIC EPI 2.0.5 ML INH; +SINGULAIR10 MG PO; +TESSALON PERLE100 MG PO; +XOPENEX 0.0.63 MG/3 UPD
[2017-07-31 08:10] LABS: BASOPHILS 0.3 % (0-2); EOSINOPHILS 3.7 % (0-7); HEMATOCRIT 33.8 % (42.0-54.0); HEMOGLOBIN 10.7 g/dL (13.5-17.5); IMMATURE GRANULOCYTES 0.2 % (0-5); LYMPHOCYTES 25.5 % (15-50); MCH 29.7 pg (26.0-34.0); MCHC 31.7 g/dL (31.0-37.0); MCV 93.9 fL (80.0-100.0); MEAN PLATELET VOLUME 10.5 fL (7.4-10.4); MONOCYTES 20.1 % (2-11); NEUTROPHILS 50.2 % (40-80); PLATELET COUNT 186 10x3/uL (130-400); RDW 15.6 % (11.5-14.5); WBC 6.3 10x3/uL (4.8-10.8)
[2017-07-31 08:21] LABS: INR 1.42 (0.85-1.17); PROTIME 16.9 SECONDS (11.6-15.0)
[2017-07-31 08:22] LABS: ANION GAP 18.4 mmol/L (8-16); CALCIUM 8.7 mg/dL (8.5-10.1); CARBON DIOXIDE 19.7 mmol/L (21.0-32.0); CREATININE - SERUM 1.7 mg/dL (0.6-1.3); POTASSIUM - SERUM 5.1 mmol/L (3.5-5.1)
[2017-07-31 08:53] VITALS: BP 128/69
[2017-07-31 10:22] VITALS: Ht 182.9 cm; Wt 74.4 kg
[2017-07-31 20:54] VITALS: BP 125/61
[2017-08-01 07:44] LABS: INR 1.54 (0.85-1.17)
[2017-08-01 09:09] VITALS: BP 136/58
[2017-08-02 05:58] LABS: BASOPHILS 0.3 % (0-2); EOSINOPHILS 3.4 % (0-7); HEMATOCRIT 33.5 % (42.0-54.0); HEMOGLOBIN 10.6 g/dL (13.5-17.5); IMMATURE GRANULOCYTES 0.2 % (0-5); LYMPHOCYTES 31.8 % (15-50); MCHC 31.6 g/dL (31.0-37.0); MEAN PLATELET VOLUME 11.2 fL (7.4-10.4); MONOCYTES 17.8 % (2-11); NEUTROPHILS 46.5 % (40-80); PLATELET COUNT 204 10x3/uL (130-400); RBC 3.65 10x6/uL (4.20-6.10); WBC 5.9 10x3/uL (4.8-10.8)
[2017-08-02 05:59] LABS: MCV 91.8 fL (80.0-100.0)
[2017-08-02 06:03] LABS: INR 1.52 (0.85-1.17); PROTIME 17.8 SECONDS (11.6-15.0)
[2017-08-02 06:25] LABS: ANION GAP 15.7 mmol/L (8-16); CALCIUM 8.7 mg/dL (8.5-10.1); CARBON DIOXIDE 18.7 mmol/L (21.0-32.0); CREATININE - SERUM 1.9 mg/dL (0.6-1.3); POTASSIUM - SERUM 5.4 mmol/L (3.5-5.1)
[2017-08-02 08:00] VITALS: BP 142/66
[2017-08-02 19:54] VITALS: BP 150/59
[2017-08-03 06:30] LABS: INR 1.6 (0.85-1.17); PROTIME 18.6 SECONDS (11.6-15.0)
[2017-08-03 08:00] VITALS: BP 150/67
[2017-08-03] MEDS ORDERED: COUMADIN2.5 MG PO (08:01)
[2017-08-03] MEDS ORDERED: METOPROLOL TART50 MG PO (08:02)
== END 2017-08-03 11:00 | disposition home or self-care (01) | DRG 291 ==
LOC: D.REHAB 16:55
PROVIDERS: Emergency Medicine
DX: I50.23 Acute on chronic systolic (congestive) heart failure (principal); J18.9 Pneumonia, unspecified organism; I13.0 Hypertensive heart and chronic kidney disease with heart failure and stage 1 through stage 4 chronic kidney disease, or unspecified chronic kidney disease; R04.2 Hemoptysis; D62 Acute posthemorrhagic anemia; N17.9 Acute kidney failure, unspecified; K92.1 Melena; J44.1 Chronic obstructive pulmonary disease with (acute) exacerbation; J44.0 Chronic obstructive pulmonary disease with (acute) lower respiratory infection; J98.11 Atelectasis; N18.9 Chronic kidney disease, unspecified; E11.22 Type 2 diabetes mellitus with diabetic chronic kidney disease; I27.20 Pulmonary hypertension, unspecified; J30.9 Allergic rhinitis, unspecified; I48.91 Unspecified atrial fibrillation; I25.10 Atherosclerotic heart disease of native coronary artery without angina pectoris; E78.5 Hyperlipidemia, unspecified; I73.9 Peripheral vascular disease, unspecified; E03.9 Hypothyroidism, unspecified; Z77.090 Contact with and (suspected) exposure to asbestos; Z87.891 Personal history of nicotine dependence; Z95.1 Presence of aortocoronary bypass graft; Z89.512 Acquired absence of left leg below knee; Z85.46 Personal history of malignant neoplasm of prostate; E87.5 Hyperkalemia; I35.0 Nonrheumatic aortic (valve) stenosis; E11.65 Type 2 diabetes mellitus with hyperglycemia

== ENCOUNTER 2017-09-24 11:43 | Inpatient (IN) | payer MEDICARE, OTHER ==
[~2017-09-24] VITALS: Ht 182.9 cm; Wt 73.5 kg
[2017-09-24] VITALS (11 sets, daily range): BP systolic 100–160; BP diastolic 58–79; BMI 21.2
--- NOTE | ~2017-09-24 | EC ---
PATIENT:HERBERT JEWELL DATE OF SERVICE: 09/24/17 SEX: M MEDICAL RECORD: [id number] DATE OF : 31 LOCATION:D.[facility] AGE OF PATIENT: 87 ADMISSION DATE: 09/24/17 REFERRING PHYSICIAN: INTERPRETING PHYSICIAN: ZULMA HEBERT MD ECHOCARDIOGRAM REPORT ECHO CHARGES 5 ECHO LIMITED Date: 09/25 1 DOPPLER ECHO COLOR FLOW 2 DOPPLER ECHO PULSE CLINICAL DIAGNOSIS: A-FIB ECHOCARDIOGRAPHIC MEASUREMENTS (adult normal given) AC root (d.<3.7cm) 0 cm LV Septum d (<1.2 cm> 0 cm Valve Excursion 0.7 cm LV Septum (systole) 0 cm Left Atria (s.<4.0cm> 0 cm LVPW d(<1.2cm) 0 cm RV (d.<2.3cm) 0 cm LVPW (sytole) 0 cm LV diastole(<5.6CM) 0 cm MV E-F(>70mm/sec) 0 cm LV systole 0 cm LVOT Diameter 2.1 cm MV exc.(>10mm) 0 cm Est.ejection fraction (50-75%) 0 % DOPPLER: LVIT cm/sec A 0 cm/sec E 0 cm/sec LA 0 cm/sec RVSP 41.0 mmHg LVOT 71.0 cm/sec AOP1/2T 0 m/s Asc. Ao 315 cm/sec RVOT 0 cm/sec RA 0 cm/sec PA 0 cm/sec AV Gradient Peak 40.0 mmHg AV Mean 20.0 mmHg AV Area 0.7 cm MV Gradient Peak 0 mmHg MV Mean 0 mmHg MV Area 0 cm COMMENTS: LIMITED STUDY (2-D,COLOR,DOPPLER) COMPLETE ECHO DONE ON 07/28/17 Onion Topper: Xiomy GOETZOE Financial Project Manager: Rosalie Hebert TAPE# PACS Pericardial Effusion N DATE OF SERVICE: FINDINGS: 1. Very difficult study. The patient had images which were hard to visualize. The overall ejection fraction appears to be mildly reduced with ejection fraction of 40% to 45% with mild global hypokinesis. 2. The left atrium is dilated. 3. The mitral valve has moderate mitral regurgitation. 4. The aortic valve has moderate aortic stenosis. Peak pressure gradient of 40-45 mmHg. There is trace aortic insufficiency. ECHOCARDIOGRAM REPORT [id number] HERBERT JEWELL 5. The tricuspid valve has moderate tricuspid regurgitation. RVSP is 41 mmHg. 6. The right ventricle is normal. 7. The right atrium is overall normal. 8. The pulmonic valve has mild pulmonic insufficiency. TRANSINT:[id number] Voice Confirmation ID: [id number] DOCUMENT ID: [id number] ZULMA HEBERT MD at 1147 CC: [id number] DICTATION DATE: 09/26/171820 CARBURETOR SPECIALIST: 09/26/171940 ADM IN [facility] [address] [place] [id number]
[~2017-09-24 11:43] MED LIST changes: +COUMADIN2.5 MG PO
[2017-09-24 12:34] LABS: HEMATOCRIT 26.5 % (42.0-54.0); HEMOGLOBIN 8.4 g/dL (13.5-17.5); MCH 30.2 pg (26.0-34.0); MCHC 31.7 g/dL (31.0-37.0); MCV 95.3 fL (80.0-100.0); MEAN PLATELET VOLUME 10.4 fL (7.4-10.4); PLATELET COUNT 206 10x3/uL (130-400); RBC 2.78 10x6/uL (4.20-6.10); RDW 18.7 % (11.5-14.5); WBC 7.6 10x3/uL (4.8-10.8)
[2017-09-24 12:48] LABS: ALKALINE PHOSPHATASE 69 U/L (46-116); ALT (SGPT) 19 U/L (10-68); BILIRUBIN - TOTAL 1.43 mg/dL (0.2-1.3); CALC OSMOLALITY 304 mosm/kg (275-300); CARBON DIOXIDE 22.8 mmol/L (21.0-32.0); CHLORIDE - SERUM 111 mmol/L (98-107); GLUCOSE 134 mg/dL (74-106); POTASSIUM - SERUM 5.7 mmol/L (3.5-5.1); PROTEIN - SERUM 6.9 g/dL (6.4-8.2); SODIUM 142 mmol/L (136-145); UREA NITROGEN 68 mg/dL (7-18); eGFR NON AFRICAN AMERICAN 34 mL/min (90-120)
[2017-09-24 13:03] LABS: CKMB 1.9 U/L (0.0-3.6); CREATINE KINASE 44 UL (21-232); TROPONIN-I 0.056 ng/mL (0.000-0.060)
[2017-09-24 13:50] LABS: BASOPHILS 2 % (0-2); LYMPHOCYTES 24 % (15-50); MONOCYTES 14 % (2-11); NEUTROPHILS 60 % (40-80)
[2017-09-24 13:51] LABS: PLATELET ESTIMATE NORMAL
[2017-09-24] MEDS ORDERED: GLIPIZIDE10 MG PO (15:16)
[2017-09-24] MEDS ORDERED: FUROSEMIDE40 MG PO (15:16)
[2017-09-24] MEDS ORDERED: FOSINOPRIL SODIUM PO (15:17)
[2017-09-24] MEDS ORDERED: COREG 3.1253.125 MG PO (15:18)
[2017-09-24 16:12] LABS: BASOPHILS 0.3 % (0-2); EOSINOPHILS 0.4 % (0-7); HEMATOCRIT 27.1 % (42.0-54.0); HEMOGLOBIN 8.7 g/dL (13.5-17.5); IMMATURE GRANULOCYTES 0.3 % (0-5); LYMPHOCYTES 19.5 % (15-50); MCH 30.6 pg (26.0-34.0); MCHC 32.1 g/dL (31.0-37.0); MCV 95.4 fL (80.0-100.0); MEAN PLATELET VOLUME 10.4 fL (7.4-10.4); MONOCYTES 19.5 % (2-11); PLATELET COUNT 207 10x3/uL (130-400); RBC 2.84 10x6/uL (4.20-6.10); RDW 19.2 % (11.5-14.5); WBC 6.9 10x3/uL (4.8-10.8)
[2017-09-24 16:38] LABS: ALBUMIN 3.1 g/dL (3.4-5.0); ANION GAP 17.4 mmol/L (8-16); BILIRUBIN - TOTAL 1.58 mg/dL (0.2-1.3); CARBON DIOXIDE 19.7 mmol/L (21.0-32.0); CREATININE - SERUM 1.9 mg/dL (0.6-1.3); PROTEIN - SERUM 6.8 g/dL (6.4-8.2)
[2017-09-24 16:40] LABS: POTASSIUM - SERUM 6.1 mmol/L (3.5-5.1)
[2017-09-24 18:52] LABS: APPEARANCE CLEAR (CLEAR); BILIRUBIN NEGATIVE (NEGATIVE); COLOR STRAW (YELLOW); GLUCOSE NEGATIVE (NEGATIVE); KETONE SMALL mg/dL (NEGATIVE); NITRITE NEGATIVE (NEGATIVE); PROTEIN NEGATIVE (NEGATIVE); SPECIFIC GRAVITY 1.015 (1.005-1.020); UROBILINOGEN NORMAL (NORMAL)
[2017-09-24 18:54] LABS: RED CELLS - URINE 0-5 /hpf (0-5); WHITE CELLS - URINE OCC /hpf (0-5)
[2017-09-24 18:55] LABS: BACTERIA FEW /hpf (NONE SEEN)
[2017-09-24 20:08] LABS: HEMATOCRIT 27.8 % (42.0-54.0)
[2017-09-24 20:18] LABS: ANION GAP 20.7 mmol/L (8-16); CALCIUM 9.1 mg/dL (8.5-10.1); CARBON DIOXIDE 16.2 mmol/L (21.0-32.0); CREATININE - SERUM 1.7 mg/dL (0.6-1.3)
[2017-09-24 20:22] LABS: POTASSIUM - SERUM 6.9 mmol/L (3.5-5.1)
[2017-09-24 22:43] LABS: HEMATOCRIT 30.6 % (42.0-54.0); HEMOGLOBIN 9.9 g/dL (13.5-17.5)
[2017-09-25] VITALS (23 sets, daily range): BP systolic 112–164; BP diastolic 54–88; Ht 182.9 cm; Wt 73.5 kg
[2017-09-25 05:19] LABS: BASOPHILS 0.3 % (0-2); HEMATOCRIT 31.5 % (42.0-54.0); HEMOGLOBIN 10.1 g/dL (13.5-17.5); IMMATURE GRANULOCYTES 0.3 % (0-5); MCH 30.3 pg (26.0-34.0); MCHC 32.1 g/dL (31.0-37.0); MCV 94.6 fL (80.0-100.0); MEAN PLATELET VOLUME 10.7 fL (7.4-10.4); MONOCYTES 30.7 % (2-11); NEUTROPHILS 55.7 % (40-80); PLATELET COUNT 200 10x3/uL (130-400); RBC 3.33 10x6/uL (4.20-6.10); RDW 19.4 % (11.5-14.5); WBC 7.7 10x3/uL (4.8-10.8)
[2017-09-25 05:29] LABS: ALBUMIN 2.9 g/dL (3.4-5.0); ANION GAP 16.5 mmol/L (8-16); BILIRUBIN - TOTAL 1.67 mg/dL (0.2-1.3); CALCIUM 9.1 mg/dL (8.5-10.1); CARBON DIOXIDE 23.8 mmol/L (21.0-32.0); CREATININE - SERUM 1.7 mg/dL (0.6-1.3); POTASSIUM - SERUM 5.3 mmol/L (3.5-5.1); PROTEIN - SERUM 6.8 g/dL (6.4-8.2)
[2017-09-25 06:49] LABS: APTT 31.8 SECONDS (22.8-39.4); INR 1.56 (0.85-1.17); PROTIME 18.2 SECONDS (11.6-15.0)
[2017-09-25 12:11] LABS: HEMATOCRIT 27.8 % (42.0-54.0)
[2017-09-25 20:13] LABS: HEMATOCRIT 31.3 % (42.0-54.0); HEMOGLOBIN 9.8 g/dL (13.5-17.5)
[2017-09-26] VITALS (17 sets, daily range): BP systolic 132–174; BP diastolic 54–73
[2017-09-26 01:05] LABS: HEMATOCRIT 29.6 % (42.0-54.0); HEMOGLOBIN 9.2 g/dL (13.5-17.5)
[2017-09-26 03:42] LABS: BASOPHILS 0.1 % (0-2); EOSINOPHILS 1.9 % (0-7); HEMATOCRIT 30.2 % (42.0-54.0); HEMOGLOBIN 9.4 g/dL (13.5-17.5); IMMATURE GRANULOCYTES 0.1 % (0-5); LYMPHOCYTES 17.8 % (15-50); MCH 30.2 pg (26.0-34.0); MCHC 31.1 g/dL (31.0-37.0); MEAN PLATELET VOLUME 10.1 fL (7.4-10.4); MONOCYTES 31.1 % (2-11); PLATELET COUNT 186 10x3/uL (130-400); RBC 3.11 10x6/uL (4.20-6.10); WBC 7.4 10x3/uL (4.8-10.8)
[2017-09-26 03:50] LABS: MCV 97.1 fL (80.0-100.0)
[2017-09-26 03:54] LABS: INR 1.38 (0.85-1.17); PROTIME 16.5 SECONDS (11.6-15.0)
[2017-09-26 03:59] LABS: ALBUMIN 2.6 g/dL (3.4-5.0); ANION GAP 11.2 mmol/L (8-16); BILIRUBIN - TOTAL 1.05 mg/dL (0.2-1.3); CALCIUM 8.3 mg/dL (8.5-10.1); CARBON DIOXIDE 27.5 mmol/L (21.0-32.0); CREATININE - SERUM 1.8 mg/dL (0.6-1.3); POTASSIUM - SERUM 4.7 mmol/L (3.5-5.1); PROTEIN - SERUM 6.5 g/dL (6.4-8.2)
[2017-09-26 04:07] LABS: % SATURATION 10 % (15-55); IRON 28 ug/dl (35-150); TOTAL IRON BIND CAPACITY 268 ug/dl (260-445); UNSAT IRON BIND CAPACITY 240 ug/dl (150-375)
[2017-09-26 04:16] LABS: BILIRUBIN - DIRECT 0.3 mg/dL (0.00-0.30); BILIRUBIN - TOTAL 1.03 mg/dL (0.2-1.3)
[2017-09-26 12:45] LABS: HEMATOCRIT 28.9 % (42.0-54.0); HEMOGLOBIN 9.3 g/dL (13.5-17.5)
[2017-09-27 05:03] VITALS: BP 185/66
[2017-09-27 07:54] LABS: BASOPHILS 0.3 % (0-2); EOSINOPHILS 4.6 % (0-7); HEMATOCRIT 30.9 % (42.0-54.0); HEMOGLOBIN 9.6 g/dL (13.5-17.5); IMMATURE GRANULOCYTES 0.3 % (0-5); LYMPHOCYTES 18.8 % (15-50); MCH 30.6 pg (26.0-34.0); MCHC 31.1 g/dL (31.0-37.0); MCV 98.4 fL (80.0-100.0); MEAN PLATELET VOLUME 10.3 fL (7.4-10.4); MONOCYTES 23.5 % (2-11); NEUTROPHILS 52.5 % (40-80); PLATELET COUNT 164 10x3/uL (130-400); RBC 3.14 10x6/uL (4.20-6.10); RDW 19.5 % (11.5-14.5); WBC 6.7 10x3/uL (4.8-10.8)
[2017-09-27 08:05] LABS: ANION GAP 13.3 mmol/L (8-16); CALCIUM 8.4 mg/dL (8.5-10.1); CARBON DIOXIDE 25.5 mmol/L (21.0-32.0); CREATININE - SERUM 1.4 mg/dL (0.6-1.3); POTASSIUM - SERUM 4.8 mmol/L (3.5-5.1)
[2017-09-27 08:41] VITALS: BP 149/62
[2017-09-27 13:04] VITALS: BP 146/65
[2017-09-27 16:39] VITALS: BP 129/79
[2017-09-27 20:43] VITALS: BP 125/55
[2017-09-27 23:44] VITALS: BP 140/55
[2017-09-28 04:22] VITALS: BP 136/52
[2017-09-28 08:29] VITALS: BP 138/66
[2017-09-28 12:30] VITALS: BP 155/59
[2017-09-28 16:18] VITALS: BP 119/53
[2017-09-28 20:25] VITALS: BP 149/56
[2017-09-29 01:05] VITALS: BP 154/54
[2017-09-29 05:16] VITALS: BP 134/64
[2017-09-29 08:13] VITALS: BP 138/51
[2017-09-29 12:35] VITALS: BP 129/81
[2017-09-29 16:37] VITALS: BP 143/62
[2017-09-29 20:01] VITALS: BP 136/49
[2017-09-30 04:35] VITALS: BP 143/55
[2017-09-30 08:14] VITALS: BP 129/51
[2017-09-30] MEDS ORDERED: PROTONIX40 MG PO (11:28)
[2017-09-30 13:15] VITALS: BP 157/61
== END 2017-09-30 15:14 | disposition home health service (06) | DRG 811 ==
LOC: D.ER 11:43 → D.MS 14:12 → D.ICU 14:12 → D.MS 09-26 17:32
PROVIDERS: Emergency Medicine; Family Medicine; Internal Medicine Gastroenterology; Internal Medicine Nephrology
PROC: 0DB78ZX Excision of Stomach, Pylorus, Via Natural or Artificial Opening Endoscopic, Diagnostic (ICD-10-PCS; principal; 2017-09-25 10:21)
DX: D62 Acute posthemorrhagic anemia (principal); I46.9 Cardiac arrest, cause unspecified; I13.2 Hypertensive heart and chronic kidney disease with heart failure and with stage 5 chronic kidney disease, or end stage renal disease; I50.22 Chronic systolic (congestive) heart failure; N18.5 Chronic kidney disease, stage 5; N17.9 Acute kidney failure, unspecified; E87.2 Acidosis; R04.0 Epistaxis; E11.22 Type 2 diabetes mellitus with diabetic chronic kidney disease; F17.201 Nicotine dependence, unspecified, in remission; Z79.4 Long term (current) use of insulin; K29.60 Other gastritis without bleeding; K44.9 Diaphragmatic hernia without obstruction or gangrene; J44.9 Chronic obstructive pulmonary disease, unspecified; E03.9 Hypothyroidism, unspecified; Z95.1 Presence of aortocoronary bypass graft; E87.5 Hyperkalemia; I48.91 Unspecified atrial fibrillation; Z79.01 Long term (current) use of anticoagulants; I35.0 Nonrheumatic aortic (valve) stenosis

== ENCOUNTER 2017-10-26 17:21 | Inpatient (IN) | payer MEDICARE, OTHER ==
[~2017-10-26] VITALS: Ht 182.9 cm; Wt 70.9 kg
--- NOTE | ~2017-10-26 | OP ---
PATIENT NAME: HERBERT JEWELL MEDICAL RECORD: [id number] :31 LOCATION:D.MS [facility]2214 ADMISSION DATE:10/26/17 SURGEON: YAJAIRA MCHUGH MD DATE OF OPERATION: 11/03/2017 PROCEDURE: Fiberoptic bronchoscopy. INDICATION: Mr. Jewell is an 87-year-old gentleman who was admitted with pneumonia. He has copious secretions. The patient had trouble to clear his secretions. Fiberoptic bronchoscopy was carried out to remove any mucous plugging. MONITORING: EKG, pulse, and blood pressure were monitored throughout the procedure. MEDICATIONS: Atropine 0.6 mg IM, Versed 1 mg IV, fentanyl 50 mcg IV. PROCEDURE IN DETAIL: After obtaining the conscious sedation, the fiberoptic bronchoscope was easy to pass through the mouth. The epiglottis was normal. The vocal cords were normal, moving equally on phonation. The main trachea was normal. The conrad was sharp. The right main bronchus subsegment to the right upper lobe, right middle lobe, right lower lobe within normal range. There was rugosity of the bronchial mucosa. There was white yellowish secretion in the main bronchial tree. The left main bronchus was normal. The subsegment to the left upper lobe lingula, left lower lobe within normal limits. No endobronchial lesion. No rugosity of the bronchial tube. No masses were seen. There was white yellowish secretion in the bronchial tree. No mucus plugging. Specimen washing was obtained and sent for routine culture and sensitivity, AFB and fungus and cytology. Overall, the patient tolerated the procedure very well. TRANSINT:[id number] Voice Confirmation ID: [id number] DOCUMENT ID: [id number] YAJAIRA MCHUGH MD at 1110 CC: [id number] DICTATION DATE: 11/03/17 1808 LABORATORY EQUIPMENT CLEANER: 11/03/17 1900 ADM IN [place] [id number] [place] [address]
[~2017-10-26 17:21] MED LIST changes: +COREG 3.1253.125 MG PO; +FOSINOPRIL SODIUM PO; +FUROSEMIDE40 MG PO; +GLIPIZIDE10 MG PO
[2017-10-26 17:55] LABS: BASOPHILS 0.1 % (0-2); EOSINOPHILS 0 % (0-7); HEMOGLOBIN 9.9 g/dL (13.5-17.5); IMMATURE GRANULOCYTES 0.3 % (0-5); LYMPHOCYTES 16.7 % (15-50); MCH 29.8 pg (26.0-34.0); MCHC 31.9 g/dL (31.0-37.0); MCV 93.4 fL (80.0-100.0); MEAN PLATELET VOLUME 11.1 fL (7.4-10.4); MONOCYTES 20.3 % (2-11); NEUTROPHILS 62.6 % (40-80); PLATELET COUNT 167 10x3/uL (130-400); RBC 3.32 10x6/uL (4.20-6.10); WBC 10.1 10x3/uL (4.8-10.8)
[2017-10-26 18:00] VITALS: BP 149/64
[2017-10-26 18:06] LABS: ALBUMIN 3.2 g/dL (3.4-5.0); ANION GAP 16.9 mmol/L (8-16); BILIRUBIN - TOTAL 1.13 mg/dL (0.2-1.3); CALCIUM 8.6 mg/dL (8.5-10.1); CREATININE - SERUM 1.8 mg/dL (0.6-1.3); POTASSIUM - SERUM 4.9 mmol/L (3.5-5.1); PROTEIN - SERUM 8.1 g/dL (6.4-8.2)
[2017-10-26 18:23] LABS: APTT 34.1 SECONDS (22.8-39.4); INR 1.38 (0.85-1.17); PROTIME 16.5 SECONDS (11.6-15.0)
[2017-10-26 18:30] VITALS: BP 142/64
[2017-10-26 20:15] VITALS: BP 146/49
[2017-10-26 21:00] VITALS: BP 146/49
[2017-10-26] MEDS ORDERED: GLIPIZIDE10 MG PO (23:01)
[2017-10-26] MEDS ORDERED: ALDACTONE25 MG PO (23:02)
[2017-10-26] MEDS ORDERED: FOLTX TABLET1 EACH PO (23:03)
[2017-10-26 23:08] VITALS: BP 137/75; BMI 21.9
[2017-10-27 04:42] VITALS: BP 104/81
[2017-10-27 05:42] LABS: HEMATOCRIT 31.1 % (42.0-54.0); HEMOGLOBIN 9.9 g/dL (13.5-17.5); MCH 30.3 pg (26.0-34.0); MCHC 31.8 g/dL (31.0-37.0); MCV 95.1 fL (80.0-100.0); MEAN PLATELET VOLUME 11.3 fL (7.4-10.4); PLATELET COUNT 163 10x3/uL (130-400); RBC 3.27 10x6/uL (4.20-6.10); RDW 17.4 % (11.5-14.5); WBC 9.3 10x3/uL (4.8-10.8)
[2017-10-27 06:04] LABS: ANION GAP 12.9 mmol/L (8-16); CALCIUM 8.6 mg/dL (8.5-10.1); CARBON DIOXIDE 23.9 mmol/L (21.0-32.0); CREATININE - SERUM 1.7 mg/dL (0.6-1.3); POTASSIUM - SERUM 4.8 mmol/L (3.5-5.1)
[2017-10-27 07:44] VITALS: BP 106/50
[2017-10-27 08:02] LABS: LYMPHOCYTES 19 % (15-50); MONOCYTES 4 % (2-11); NEUTROPHILS 77 % (40-80)
[2017-10-27 08:03] LABS: BURR CELLS OCC; PLATELET ESTIMATE NORMAL; PLATELET MORPHOLOGY PLT CLUMPS PRESENT; SCHISTOCYTES OCC; SMUDGE CELLS OCC
[2017-10-27 10:27] VITALS: BMI 21.8
[2017-10-27 11:59] VITALS: BP 117/47
[2017-10-27 14:53] VITALS: Ht 182.9 cm; Wt 70.9 kg
[2017-10-27 15:49] VITALS: BP 138/59
[2017-10-27 20:29] VITALS: BP 125/46
[2017-10-28] VITALS (9 sets, daily range): BP systolic 112–181; BP diastolic 48–62
[2017-10-28 06:43] LABS: BASOPHILS 0.1 % (0-2); HEMATOCRIT 30.1 % (42.0-54.0); HEMOGLOBIN 9.6 g/dL (13.5-17.5); IMMATURE GRANULOCYTES 0.1 % (0-5); LYMPHOCYTES 17.3 % (15-50); MCHC 31.9 g/dL (31.0-37.0); MCV 94.1 fL (80.0-100.0); MEAN PLATELET VOLUME 10.2 fL (7.4-10.4); MONOCYTES 26.9 % (2-11); NEUTROPHILS 54.6 % (40-80); PLATELET COUNT 142 10x3/uL (130-400); RDW 17.1 % (11.5-14.5); WBC 7.4 10x3/uL (4.8-10.8)
[2017-10-28 06:51] LABS: CALCIUM 8.4 mg/dL (8.5-10.1); CARBON DIOXIDE 22.8 mmol/L (21.0-32.0); CREATININE - SERUM 1.5 mg/dL (0.6-1.3); POTASSIUM - SERUM 4.8 mmol/L (3.5-5.1)
[2017-10-28 06:55] LABS: APTT 44.1 SECONDS (22.8-39.4); INR 1.48 (0.85-1.17); PROTIME 17.5 SECONDS (11.6-15.0)
[2017-10-28 18:42] LABS: PROTEIN - BODY FLUID 2.4 G/DL
[2017-10-28 19:09] LABS: MACROPHAGES BF 4 %; MESOTHELIALS BF 2 %; NEUT - BF 13 %
[2017-10-29] VITALS (7 sets, daily range): BP systolic 112–147; BP diastolic 59–90
[2017-10-29 06:28] LABS: BASOPHILS 0.2 % (0-2); EOSINOPHILS 2.1 % (0-7); HEMATOCRIT 29.1 % (42.0-54.0); HEMOGLOBIN 9.2 g/dL (13.5-17.5); IMMATURE GRANULOCYTES 0.4 % (0-5); LYMPHOCYTES 22.2 % (15-50); MCH 29.7 pg (26.0-34.0); MCHC 31.6 g/dL (31.0-37.0); MCV 93.9 fL (80.0-100.0); MEAN PLATELET VOLUME 10.7 fL (7.4-10.4); NEUTROPHILS 54.1 % (40-80); PLATELET COUNT 154 10x3/uL (130-400)
[2017-10-29 06:32] LABS: WBC 5.2 10x3/uL (4.8-10.8)
[2017-10-29 06:36] LABS: ANION GAP 13.3 mmol/L (8-16); CALCIUM 8.2 mg/dL (8.5-10.1); CARBON DIOXIDE 21.3 mmol/L (21.0-32.0); CREATININE - SERUM 1.5 mg/dL (0.6-1.3); POTASSIUM - SERUM 4.6 mmol/L (3.5-5.1)
[2017-10-29 12:21] LABS: IMMUNOGLOBULIN A 682 mg/dL (61-437); IMMUNOGLOBULIN G 1355 mg/dL (700-1600)
[2017-10-30 03:57] VITALS: BP 138/64
[2017-10-30 05:41] LABS: BASOPHILS 0.4 % (0-2); EOSINOPHILS 1.9 % (0-7); HEMATOCRIT 29.4 % (42.0-54.0); HEMOGLOBIN 9.1 g/dL (13.5-17.5); IMMATURE GRANULOCYTES 0.2 % (0-5); LYMPHOCYTES 25.5 % (15-50); MCH 29.3 pg (26.0-34.0); MCV 94.5 fL (80.0-100.0); MEAN PLATELET VOLUME 11.3 fL (7.4-10.4); MONOCYTES 25.5 % (2-11); NEUTROPHILS 46.5 % (40-80); PLATELET COUNT 160 10x3/uL (130-400); RBC 3.11 10x6/uL (4.20-6.10); WBC 5.4 10x3/uL (4.8-10.8)
[2017-10-30 06:08] LABS: ANION GAP 14.4 mmol/L (8-16); CALCIUM 8.2 mg/dL (8.5-10.1); CARBON DIOXIDE 20.3 mmol/L (21.0-32.0); CREATININE - SERUM 1.4 mg/dL (0.6-1.3); POTASSIUM - SERUM 4.7 mmol/L (3.5-5.1)
[2017-10-30 08:28] VITALS: BP 143/64
[2017-10-30 12:36] VITALS: BP 140/60
[2017-10-30 16:00] VITALS: BP 125/65
[2017-10-30 22:30] VITALS: BP 143/68
[2017-10-31 04:26] VITALS: BP 144/96
[2017-10-31 07:13] LABS: BASOPHILS 0.4 % (0-2); EOSINOPHILS 2.8 % (0-7); HEMATOCRIT 30.6 % (42.0-54.0); HEMOGLOBIN 9.7 g/dL (13.5-17.5); IMMATURE GRANULOCYTES 0.4 % (0-5); LYMPHOCYTES 21.3 % (15-50); MCH 29.7 pg (26.0-34.0); MCHC 31.7 g/dL (31.0-37.0); MCV 93.6 fL (80.0-100.0); MEAN PLATELET VOLUME 11.3 fL (7.4-10.4); MONOCYTES 19.8 % (2-11); NEUTROPHILS 55.3 % (40-80); PLATELET COUNT 162 10x3/uL (130-400); RBC 3.27 10x6/uL (4.20-6.10); RDW 16.8 % (11.5-14.5); WBC 5.4 10x3/uL (4.8-10.8)
[2017-10-31 07:25] LABS: ANION GAP 12.1 mmol/L (8-16); CALCIUM 8.1 mg/dL (8.5-10.1); CREATININE - SERUM 1.4 mg/dL (0.6-1.3); POTASSIUM - SERUM 5.1 mmol/L (3.5-5.1)
[2017-10-31 08:23] VITALS: BP 154/74
[2017-10-31 12:33] VITALS: BP 147/67
[2017-10-31 17:13] VITALS: BP 137/64
[2017-10-31 20:06] LABS: IMMUNOGLOBULIN E 15 IU/mL (0-100)
[2017-10-31 22:51] VITALS: BP 140/68
[2017-11-01 05:25] VITALS: BP 152/75
[2017-11-01 06:32] LABS: BASOPHILS 0.3 % (0-2); EOSINOPHILS 3.4 % (0-7); HEMATOCRIT 31.3 % (42.0-54.0); HEMOGLOBIN 9.7 g/dL (13.5-17.5); IMMATURE GRANULOCYTES 0.3 % (0-5); LYMPHOCYTES 17.3 % (15-50); MCH 29.2 pg (26.0-34.0); MCV 94.3 fL (80.0-100.0); MONOCYTES 15.2 % (2-11); NEUTROPHILS 63.5 % (40-80); PLATELET COUNT 182 10x3/uL (130-400); RBC 3.32 10x6/uL (4.20-6.10); RDW 16.7 % (11.5-14.5); WBC 6.1 10x3/uL (4.8-10.8)
[2017-11-01 06:59] LABS: ANION GAP 12.6 mmol/L (8-16); CALCIUM 8.3 mg/dL (8.5-10.1); CARBON DIOXIDE 21.3 mmol/L (21.0-32.0); CREATININE - SERUM 1.3 mg/dL (0.6-1.3); POTASSIUM - SERUM 4.9 mmol/L (3.5-5.1)
[2017-11-01 08:48] VITALS: BP 158/74
[2017-11-01 13:28] VITALS: BP 149/62
[2017-11-01 16:51] VITALS: BP 134/60
[2017-11-01 19:47] VITALS: BP 167/77
[2017-11-01 23:42] VITALS: BP 146/71
[2017-11-02 04:18] VITALS: BP 146/81
[2017-11-02 06:40] LABS: BASOPHILS 0.4 % (0-2); EOSINOPHILS 2.5 % (0-7); HEMATOCRIT 31.1 % (42.0-54.0); HEMOGLOBIN 9.6 g/dL (13.5-17.5); IMMATURE GRANULOCYTES 0.2 % (0-5); LYMPHOCYTES 19.8 % (15-50); MCH 29.2 pg (26.0-34.0); MCHC 30.9 g/dL (31.0-37.0); MCV 94.5 fL (80.0-100.0); MEAN PLATELET VOLUME 10.8 fL (7.4-10.4); MONOCYTES 15.5 % (2-11); NEUTROPHILS 61.6 % (40-80); PLATELET COUNT 189 10x3/uL (130-400); RBC 3.29 10x6/uL (4.20-6.10); RDW 16.8 % (11.5-14.5); WBC 5.6 10x3/uL (4.8-10.8)
[2017-11-02 07:00] LABS: ALBUMIN 2.4 g/dL (3.4-5.0); ANION GAP 12.5 mmol/L (8-16); BILIRUBIN - TOTAL 0.63 mg/dL (0.2-1.3); CALCIUM 8.6 mg/dL (8.5-10.1); CARBON DIOXIDE 22.6 mmol/L (21.0-32.0); CREATININE - SERUM 1.3 mg/dL (0.6-1.3); POTASSIUM - SERUM 5.1 mmol/L (3.5-5.1); PROTEIN - SERUM 7.3 g/dL (6.4-8.2)
[2017-11-02 08:06] VITALS: BP 149/75
[2017-11-02 11:34] VITALS: BP 146/75
[2017-11-02 15:40] VITALS: BP 150/71
[2017-11-02 17:27] LABS: BASOPHILS 0.5 % (0-2); EOSINOPHILS 1.4 % (0-7); HEMATOCRIT 31.6 % (42.0-54.0); HEMOGLOBIN 9.8 g/dL (13.5-17.5); IMMATURE GRANULOCYTES 0.3 % (0-5); MCH 29.7 pg (26.0-34.0); MCV 95.8 fL (80.0-100.0); MEAN PLATELET VOLUME 10.7 fL (7.4-10.4); MONOCYTES 15.1 % (2-11); NEUTROPHILS 63.7 % (40-80); PLATELET COUNT 198 10x3/uL (130-400); RDW 16.8 % (11.5-14.5); WBC 6.6 10x3/uL (4.8-10.8)
[2017-11-02 17:44] LABS: INR 1.45 (0.85-1.17); PROTIME 16.9 SECONDS (11.6-15.0)
[2017-11-02 17:46] LABS: APTT 45.2 SECONDS (22.8-39.4)
[2017-11-02 19:46] VITALS: BP 142/60
[2017-11-02 23:25] VITALS: BP 148/73
[2017-11-03 03:42] VITALS: BP 141/75
[2017-11-03 06:29] LABS: BASOPHILS 0.4 % (0-2); EOSINOPHILS 2.7 % (0-7); HEMATOCRIT 30.6 % (42.0-54.0); HEMOGLOBIN 9.4 g/dL (13.5-17.5); IMMATURE GRANULOCYTES 0.4 % (0-5); LYMPHOCYTES 21.1 % (15-50); MCH 29.2 pg (26.0-34.0); MCHC 30.7 g/dL (31.0-37.0); MONOCYTES 17.4 % (2-11); PLATELET COUNT 203 10x3/uL (130-400); RBC 3.22 10x6/uL (4.20-6.10); RDW 16.6 % (11.5-14.5); WBC 5.2 10x3/uL (4.8-10.8)
[2017-11-03 06:38] LABS: ALBUMIN 2.5 g/dL (3.4-5.0); ANION GAP 12.4 mmol/L (8-16); BILIRUBIN - TOTAL 0.6 mg/dL (0.2-1.3); CALCIUM 8.5 mg/dL (8.5-10.1); CARBON DIOXIDE 24.2 mmol/L (21.0-32.0); CREATININE - SERUM 1.3 mg/dL (0.6-1.3); POTASSIUM - SERUM 5.6 mmol/L (3.5-5.1); PROTEIN - SERUM 6.6 g/dL (6.4-8.2)
[2017-11-03 07:54] VITALS: BP 159/76
[2017-11-03 12:18] VITALS: BP 156/63
[2017-11-03 13:21] LABS: LEGIONELLA ANTIGEN - URINE Negative (Negative)
[2017-11-03 13:21] LABS: HISTOPLASMA GAL MANNAN AG SER <0.5 (<0.5 ng/mL)
[2017-11-03 15:44] VITALS: BP 139/72
[2017-11-03 19:17] VITALS: BP 142/69
[2017-11-04] VITALS (7 sets, daily range): BP systolic 133–160; BP diastolic 65–83
[2017-11-04 06:06] LABS: BASOPHILS 0.3 % (0-2); EOSINOPHILS 2.9 % (0-7); HEMATOCRIT 31.2 % (42.0-54.0); HEMOGLOBIN 9.6 g/dL (13.5-17.5); IMMATURE GRANULOCYTES 0.3 % (0-5); LYMPHOCYTES 21.1 % (15-50); MCH 29.4 pg (26.0-34.0); MCHC 30.8 g/dL (31.0-37.0); MCV 95.4 fL (80.0-100.0); MEAN PLATELET VOLUME 10.6 fL (7.4-10.4); MONOCYTES 15.8 % (2-11); NEUTROPHILS 59.6 % (40-80); PLATELET COUNT 216 10x3/uL (130-400); RBC 3.27 10x6/uL (4.20-6.10); RDW 17.3 % (11.5-14.5); WBC 5.9 10x3/uL (4.8-10.8)
[2017-11-04 06:26] LABS: ALBUMIN 2.4 g/dL (3.4-5.0); ANION GAP 12.7 mmol/L (8-16); BILIRUBIN - TOTAL 0.56 mg/dL (0.2-1.3); CALCIUM 8.4 mg/dL (8.5-10.1); CARBON DIOXIDE 24.6 mmol/L (21.0-32.0); CREATININE - SERUM 1.2 mg/dL (0.6-1.3); POTASSIUM - SERUM 5.3 mmol/L (3.5-5.1); PROTEIN - SERUM 7.1 g/dL (6.4-8.2)
[2017-11-04 20:10] LABS: AFB SPECIMEN PROCESSING Concentration (())
[2017-11-05 04:04] VITALS: BP 128/57
[2017-11-05 06:36] LABS: HEMATOCRIT 30.9 % (42.0-54.0); HEMOGLOBIN 9.6 g/dL (13.5-17.5); MCH 29.7 pg (26.0-34.0); MCHC 31.1 g/dL (31.0-37.0); MCV 95.7 fL (80.0-100.0); MEAN PLATELET VOLUME 11.2 fL (7.4-10.4); PLATELET COUNT 228 10x3/uL (130-400); RBC 3.23 10x6/uL (4.20-6.10); RDW 17.2 % (11.5-14.5)
[2017-11-05 06:49] LABS: ALBUMIN 2.4 g/dL (3.4-5.0); ANION GAP 12.8 mmol/L (8-16); BILIRUBIN - TOTAL 0.57 mg/dL (0.2-1.3); CALCIUM 8.4 mg/dL (8.5-10.1); CREATININE - SERUM 1.2 mg/dL (0.6-1.3); POTASSIUM - SERUM 4.8 mmol/L (3.5-5.1); PROTEIN - SERUM 6.6 g/dL (6.4-8.2)
[2017-11-05 06:58] LABS: BASOPHILS 1 % (0-2); EOSINOPHILS 1 % (0-7); LYMPHOCYTES 21 % (15-50); MONOCYTES 15 % (2-11); NEUTROPHILS 61 % (40-80); PLATELET ESTIMATE NORMAL
[2017-11-05 08:09] VITALS: BP 133/90
[2017-11-05] MEDS ORDERED: NYSTATIN ORAL SU5 ML PO (09:17)
[2017-11-05] MEDS ORDERED: ALBUTEROL2.5 MG/3 M INH (09:17)
[2017-11-05] MEDS ORDERED: ATROVENT 0.02%2.5 ML UPD (09:18)
[2017-11-05] MEDS ORDERED: PULMICORT0.5 MG/21 UPD (09:18)
[2017-11-05] MEDS ORDERED: MUCOMYST 20200 MG/M2 INH (09:18)
[2017-11-05] MEDS ORDERED: LOVENOX30 MG/0.3 SC (09:18)
[2017-11-05] MEDS ORDERED: XOPENEX 0.0.63 MG/3 INH (09:18)
[2017-11-05] MEDS ORDERED: ACETAMINOPHEN325 MG PO (09:18)
[2017-11-05] MEDS ORDERED: TESSALON PERLE100 MG PO (09:18)
[2017-11-05] MEDS ORDERED: MUCINEX DM ER1 EAC1 PO (09:19)
[2017-11-05] MEDS ORDERED: MIRALAX17 GM PO (09:19)
[2017-11-05] MEDS ORDERED: FLORAJEN3 CAPS460 MG PO (09:19)
[2017-11-05 10:24] LABS: FUNGUS STAIN Final report (())
[2017-11-05 12:47] VITALS: BP 152/71
[2017-11-05 14:24] LABS: ACID FAST SMEAR Negative (()); AFB SPECIMEN PROCESSING Concentration (()); FUNGUS STAIN Final report (())
[2017-11-10 15:25] LABS: FUNGUS CULTURE RESULT 1 Candida albicans (())
[2017-11-27 08:19] LABS: ACID FAST CULTURE Positive (())
[2017-11-27 17:08] LABS: M TUBERCULOSIS Negative (())
[2017-12-01 07:31] LABS: FUNGUS MYCOLOGY CULTURE Final report (())
[2017-12-02 18:10] LABS: FUNGUS CULTURE RESULT 1 Candida albicans (()); FUNGUS MYCOLOGY CULTURE Final report (())
[2017-12-15 15:19] LABS: AMIKACIN 32.0 ug/mL (())
[2017-12-28 08:20] LABS: ACID FAST CULTURE Negative (()); ACID FAST SMEAR Negative (())
== END 2017-11-05 20:00 | DRG 177 ==
LOC: D.ER 17:21 → D.MS 20:35 → D.EDHOLD 20:35 → D.MS 21:40
PROVIDERS: Emergency Medicine; Family Medicine; General Practice; Internal Medicine Nephrology; Internal Medicine Pulmonary Disease; Student in an Organized Health Care Education/Training Program
PROC: 0W9B3ZZ Drainage of Left Pleural Cavity, Percutaneous Approach (ICD-10-PCS; principal; 2017-10-28 16:30)
PROC: 0B938ZZ Drainage of Right Main Bronchus, Via Natural or Artificial Opening Endoscopic (ICD-10-PCS; 2017-11-03)
DX: J15.212 Pneumonia due to Methicillin resistant Staphylococcus aureus (principal); I50.23 Acute on chronic systolic (congestive) heart failure; I13.0 Hypertensive heart and chronic kidney disease with heart failure and stage 1 through stage 4 chronic kidney disease, or unspecified chronic kidney disease; N17.9 Acute kidney failure, unspecified; J44.0 Chronic obstructive pulmonary disease with (acute) lower respiratory infection; J44.1 Chronic obstructive pulmonary disease with (acute) exacerbation; N18.9 Chronic kidney disease, unspecified; E11.22 Type 2 diabetes mellitus with diabetic chronic kidney disease; Z79.84 Long term (current) use of oral hypoglycemic drugs; Z87.891 Personal history of nicotine dependence; D50.9 Iron deficiency anemia, unspecified; I48.2 Chronic atrial fibrillation; H35.30 Unspecified macular degeneration; I27.20 Pulmonary hypertension, unspecified; I25.10 Atherosclerotic heart disease of native coronary artery without angina pectoris; Z95.1 Presence of aortocoronary bypass graft; I73.9 Peripheral vascular disease, unspecified; E78.5 Hyperlipidemia, unspecified; I08.3 Combined rheumatic disorders of mitral, aortic and tricuspid valves; R53.81 Other malaise

== ENCOUNTER 2017-11-05 14:40 | Inpatient (IN) | payer MEDICARE, OTHER ==
[~2017-11-05] VITALS: Ht 182.9 cm; Wt 74.3 kg
--- NOTE | ~2017-11-05 | DS ---
PATIENT:HERBERT JEWELL :31 MEDICAL RECORD: [id number] DISCHARGE SUMMARY ADMISSION DATE: 11/05/17 DISCHARGE DATE: 11/17/17 This is a discharge dated 11/17/2017 from inpatient rehabilitation. PRIMARY DIAGNOSES: Decreased functional ability and ability to provide activities of daily living secondary to congestive heart failure myopathy. SECONDARY DIAGNOSES: 1. Coronary artery disease. 2. Atrial fibrillation. 3. Chronic obstructive pulmonary disease. 4. Hyperkalemia. 5. Diabetes. 6. Oropharyngeal dysphagia. 7. Hypertension. 8. Anemia. 9. History of prostate cancer. 10. Chronic kidney disease. 11. Mitral and tricuspid regurgitation. 12. Aortic stenosis. 13. Status post below-knee amputation. 14. Peripheral vascular disease. 15. Neuropathy. 16. Hypothyroidism. 17. Hyperlipidemia. 18. Macular degeneration. CONSULTS THIS HOSPITALIZATION: Cardiology with Chad Leung MD HOSPITAL COURSE: Full H&P is located elsewhere on the chart on this 87-year-old male who was admitted to inpatient rehab for physical therapy and occupational therapy to improve gait, transfer skills, bed mobility, and activities of daily living to a modified independent level. He was evaluated by PT and OT and their plans of care were followed. He required assisted care for observation and assessment and medication administration. He was seen by speech therapy for oropharyngeal dysphagia. Electrolytes were managed by protocol. Cardiology was consulted and he was seen by Dr. Leung for bradycardia. Medications were adjusted. Fingerstick blood sugars were monitored throughout his hospital stay with appropriate adjustment in medications as needed. He was cooperative with therapies, progressing towards goals. Case management was involved for discharge planning. He was considered stable for discharge on 11/17/2017. DISCHARGE MEDICATIONS: As per discharge medication reconciliation. DISCHARGE DISPOSITION: The patient is discharged home. He will continue his current diet and level of activity. He will have home health for continued PT, OT and assisted care. He will follow up with primary care and specialist as directed. At least 30 minutes was spent in this discharge activity. TRANSINT:[id number] Voice Confirmation ID: [id number] DOCUMENT ID: [id number] DISCHARGE SUMMARY REPORT [id number] HERBERT JEWELL Dictated By: HUNTER EASTMAN I have interviewed/examined the above patient and agree with these documented findings. VANESSA CORDOBA MD CC: [id number] DICTATION DATE: 01/02/18 1422 THROUGH FREIGHT ENGINEER: 01/02/18 2126 DIS IN 11/17/17 [facility] [address] [place] [address]
--- NOTE | ~2017-11-05 | EC ---
PATIENT:HERBERT JEWELL DATE OF SERVICE: 11/05/17 SEX: M MEDICAL RECORD: [id number] DATE OF : 31 [facility] AGE [facility]: 87 ADMISSION DATE: 11/05/17 REFERRING PHYSICIAN: INTERPRETING PHYSICIAN: EDILMA LEUNG MD ECHOCARDIOGRAM REPORT ECHO CHARGES 4 ECHO COMPLETE Date: 11/11 CLINICAL DIAGNOSIS: CHRONIC SYTOLIC HF ECHOCARDIOGRAPHIC MEASUREMENTS (adult normal given) AC root (d.<3.7cm) 4.5 cm LV Septum d (<1.2 cm> 2.2 cm Valve Excursion 2.0 cm LV Septum (systole) 2.3 cm Left Atria (s.<4.0cm> 4.1 cm LVPW d(<1.2cm) 1.8 cm RV (d.<2.3cm) 4.3 cm LVPW (sytole) 2.1 cm LV diastole(<5.6CM) 5.1 cm MV E-F(>70mm/sec) cm LV systole 3.5 cm LVOT Diameter 1.6 cm MV exc.(>10mm) 0.8 cm Est.ejection fraction (50-75%) % DOPPLER: LVIT cm/sec A 28.0 cm/sec E 121 cm/sec LA cm/sec RVSP 43 mmHg LVOT 128 cm/sec AOP1/2T m/s Asc. Ao 263 cm/sec RVOT 80 cm/sec RA cm/sec PA 57 cm/sec AV Gradient Peak 28.00mmHg AV Mean 14.40mmHg AV Area 1.0 cm MV Gradient Peak 8.62 mmHg MV Mean 2.34 mmHg MV Area cm COMMENTS: Printer Slotter Helper: Linwood COOL Recovery Assistant: 1 Dr. Leung TAPE# PACS Pericardial Effusion N DATE OF SERVICE: 11/11/2017 FINDINGS: 1. Left ventricular chamber size is within normal limits. Left ventricular systolic function is normal. Overall ejection fraction estimated at 50% to 55%. 2. Left atrium, right atrium, and right ventricular chamber sizes are mildly dilated. Left atrium measures 4.2 cm. 3. Valvular structures: Aortic valve demonstrates raxm-mf-qkqozvbz calcific aortic stenosis. Valve area calculates 1.0 cm-squared with a gradient of 28 mm across the valve. Remaining valvular structures have normal structure and ECHOCARDIOGRAM REPORT [id number] HERBERT JEWELL. 4. Doppler interrogation elsewise reveals zhwt-aj-elzsndow mitral regurgitation, hbou-rg-njmkhxyf tricuspid regurgitation, no other valvular insufficiency or stenosis. Pulmonary systolic pressure is estimated at 43 mmHg. 5. No evidence of pericardial effusion or left ventricular thrombus. TRANSINT:[id number] Voice Confirmation ID: [id number] DOCUMENT ID: [id number] EDILMA LEUNG MD at 1713 CC: [id number] DICTATION DATE: 11/12/17 1014 SPORTS MANAGEMENT INTERNSHIP: 11/12/17 1056 ADM IN [facility] [address] [place] [id number]
--- NOTE | ~2017-11-05 | RHP ---
PATIENT: HERBERT JEWELL MEDICAL RECORD: [id number] ACCOUNT: [id number] LOCATION:[facility]1109 : 32 ADMISSION DATE: 11/05/17 REHABILITATION HISTORY AND PHYSICAL EXAMINATION POST ADMISSION PHYSICIAN EXAMINATION DATE OF ADMISSION: 11/05/2017 ADMITTING DIAGNOSIS: Congestive heart failure induced myopathy. HISTORY OF PRESENT ILLNESS: The patient is admitted to the inpatient rehab for congestive heart failure induced myopathy. He is an 87-year-old gentleman with history of diabetes, macular degeneration, sinusitis, osteoarthritis, coronary artery disease status post coronary artery bypass grafting, atrial fib, hypertension, prostate cancer, anemia, chronic kidney disease, tricuspid and mitral regurgitation, admitted with increasing shortness of breath and fever, recently hospitalized for GI bleeding, cardiopulmonary arrest. The patient has been diagnosed with COPD and quit smoking in 1989. He smoked greater than 40 years. He has got no history of asthma, pneumonia, bronchitis, sleep apnea. No history of DVT or PE. The patient has a history of positive asbestos exposure for 20 years while in the [employer]. Positive family history of COPD. The patient had a CT of his chest on 10/27/2017 with bilateral lower lobe airspace disease suspicious for pneumonia, bilateral pleural effusions with a large one on the left, increasing lymphadenopathy in the anterior window of his chest and had bilateral calcified pleural plaquing. The patient is noted to be somewhat debilitated. He has been requiring increasing O2. He is noted to have a ttssg-gjg-noof amputation with a prosthetic left leg. He is currently ambulating 15 feet with gns-bd-gnciz assist and requires frequent rest breaks due to shortness of breath and O2 requirements of minimum of 5-minute recovery time. He is considerably weaker than he normally is with [id number], more proximal weakness and distal. He will require intensive therapy to get back to his prior level of functioning or better if possible. COMORBIDITIES: In this patient include COPD, bilateral pneumonia, pleural effusions, oropharyngeal dysphagia, acute kidney injury, type 2 diabetes, bradycardia, atrial fib, coronary artery disease, peripheral vascular disease, aortic stenosis, history of coronary artery bypass grafting, neuropathy, hypothyroidism, hyperlipidemia, prostatectomy in the past, hypertension, pedal edema, and hypokalemia. PAST MEDICAL HISTORY: Significant for neuropathy, has a history of macular degeneration, diabetes, hypertension, congestive heart failure, atrial fib, edema, coronary artery disease, pneumonia, tobacco use, prostate cancer. 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 He has had coronary artery bypass grafting. He has had femoral bypass grafting, cataract surgery. He has got history a prostatectomy. ALLERGIES: LATEX. CURRENT MEDICATIONS: Include spironolactone 12.5 mg daily, Crestor 5 mg daily, polyethylene glycol 17 grams in 8 ounces of water daily, Protonix 40 mg b.i.d., Floranex 460 mg daily, glipizide 10 mg b.i.d., Lovenox 30 mg subQ daily. He is on a B12 replacement daily, carvedilol 3.125 mg b.i.d. with meals, Carafate 1 gm before meals and at bedtime, Nystatin 5 mg q.i.d., multivitamin daily, Xopenex HISTORY AND PHYSICAL [id number] FANTA,HERBERT L 0.6 mg q.i.d., Atrovent updrafts q.i.d., Mucinex D 1 tab b.i.d., Pulmicort 0.5 mg b.i.d., Tessalon Perles 100 mg t.i.d., Mucomyst 300 mg every 12 hours p.r.n. and Tylenol 650 every 4 hours p.r.n. HABITS: No history of tobacco use at this time. FAMILY HISTORY: Noncontributory. SOCIAL HISTORY: The patient hopes to return back home and get back to his prior level of functioning[place] REVIEW OF SYSTEMS: GENERAL: He does complain of weakness and fatigue. HEENT: He does complain of cold, cough, and congestion. CARDIOVASCULAR: He denies chest pain. PHYSICAL EXAMINATION: VITAL SIGNS: Stable, afebrile. GENERAL: Elderly gentleman in no acute distress, alert upon exam. HEENT: Normocephalic and atraumatic. Mucosa moist. NECK: Supple without adenopathy. LUNGS: Clear in upper duval, decreased breath sounds in the bases. HEART: Reveals regular rate and rhythm. ABDOMEN: Benign. EXTREMITIES: No clubbing, cyanosis or edema. NEUROLOGIC: He does have noted weakness. LABORATORY DATA: White count is 7.0, H&H of 9.5 and 30.7, platelet count is 222. Sodium 135, potassium 4.6, BUN and creatinine of 14 and 1.3 and blood sugar is noted to be 126. ASSESSMENT: This is an 87-year-old gentleman admitted to the rehab with a working diagnosis of congestive heart failure induced myopathy. The patient has potential to make improvement. We instituted the following multidisciplinary therapies include, but not limited to physical, occupational, respiratory, speech, nutritional services, prosthetics and orthotics. Given his complex medical condition and risk for more complications, rehabilitation services cannot be provided at a low level of care such as a residential facility. PLAN: 1. Admit to [facility] rehab for intensive inpatient therapy to include the following disciplines: A. Physical therapy to improve gait, all transfer skills and bed mobility to a modified independent level. B. Occupational therapy to improve activities of daily living to a modified independent level. C. Case management to assist with discharge planning and placement options. D. Nutrition to assist with nutritional needs. E. Rehabilitation nursing to assist in monitoring the patient's underlying medical conditions, to assist with any type of bowel or bladder management. 2. The patient's current medication and medical care will be continued. 3. Placed on standard fall precautions. 4. The patient's estimated length of stay is approximately 7 to 10 days. 5. We will discuss the patient during care team staff meeting this week. HISTORY AND PHYSICAL [id number] HERBERT JEWELL TRANSINT:[id number] Voice Confirmation ID: [id number] DOCUMENT ID: [id number] COLT notes whether there has been none or any medical/functional change since admission: - No change since prescreen. COLT attests patient continues to be appropriate for IRF: - Continues to be appropriate. VANESSA CORDOBA MD at 1124 CC: [id number] DICTATION DATE: 11/06/17 1703 GLOBAL PROGRAM MANAGER: 11/06/17 1805 ADM IN [facility] [address] [place] [address]
[~2017-11-05 14:40] MED LIST changes: +ACETAMINOPHEN325 MG PO; +ALBUTEROL2.5 MG/3 M INH; +FOLTX TABLET1 EACH PO; +LOVENOX30 MG/0.3 SC; +MIRALAX17 GM PO; +MUCOMYST 20200 MG/M2 INH; +NYSTATIN ORAL SU5 ML PO; +XOPENEX 0.0.63 MG/3 INH
[2017-11-05 19:00] VITALS: BP 151/69
[2017-11-05 21:38] VITALS: BP 151/69; BMI 21.0
[2017-11-06 06:57] LABS: BASOPHILS 0.1 % (0-2); EOSINOPHILS 2.6 % (0-7); HEMATOCRIT 30.7 % (42.0-54.0); HEMOGLOBIN 9.5 g/dL (13.5-17.5); IMMATURE GRANULOCYTES 0.6 % (0-5); LYMPHOCYTES 17.7 % (15-50); MCH 29.5 pg (26.0-34.0); MCHC 30.9 g/dL (31.0-37.0); MCV 95.3 fL (80.0-100.0); MEAN PLATELET VOLUME 10.5 fL (7.4-10.4); MONOCYTES 21.7 % (2-11); NEUTROPHILS 57.3 % (40-80); PLATELET COUNT 222 10x3/uL (130-400); RBC 3.22 10x6/uL (4.20-6.10); RDW 17.3 % (11.5-14.5)
[2017-11-06 07:18] LABS: CALCIUM 8.8 mg/dL (8.5-10.1); CARBON DIOXIDE 23.6 mmol/L (21.0-32.0); CREATININE - SERUM 1.3 mg/dL (0.6-1.3); POTASSIUM - SERUM 4.6 mmol/L (3.5-5.1)
[2017-11-06 08:00] VITALS: BP 173/77
[2017-11-06 13:11] VITALS: BMI 21.0
[2017-11-06 20:00] VITALS: BP 143/63
[2017-11-07 07:53] VITALS: BP 147/74
[2017-11-07 19:50] VITALS: BP 136/55
[2017-11-08 07:19] LABS: BASOPHILS 0.5 % (0-2); EOSINOPHILS 1.6 % (0-7); HEMOGLOBIN 9.9 g/dL (13.5-17.5); IMMATURE GRANULOCYTES 1.2 % (0-5); LYMPHOCYTES 26.3 % (15-50); MCH 29.6 pg (26.0-34.0); MCHC 30.9 g/dL (31.0-37.0); MCV 95.8 fL (80.0-100.0); MEAN PLATELET VOLUME 10.3 fL (7.4-10.4); MONOCYTES 20.2 % (2-11); NEUTROPHILS 50.2 % (40-80); PLATELET COUNT 219 10x3/uL (130-400); RBC 3.34 10x6/uL (4.20-6.10); RDW 17.4 % (11.5-14.5); WBC 5.8 10x3/uL (4.8-10.8)
[2017-11-08 07:31] LABS: ANION GAP 7.1 mmol/L (8-16); CALCIUM 8.6 mg/dL (8.5-10.1); CARBON DIOXIDE 29.7 mmol/L (21.0-32.0); CREATININE - SERUM 1.3 mg/dL (0.6-1.3); POTASSIUM - SERUM 4.8 mmol/L (3.5-5.1)
[2017-11-08 08:23] VITALS: BP 138/75
[2017-11-08 19:00] VITALS: BP 135/61
[2017-11-09 08:28] VITALS: BP 145/73
[2017-11-09 16:16] VITALS: BP 134/62
[2017-11-09 19:00] VITALS: BP 126/49
[2017-11-10 07:03] LABS: BASOPHILS 0.4 % (0-2); EOSINOPHILS 1.4 % (0-7); HEMATOCRIT 31.7 % (42.0-54.0); HEMOGLOBIN 9.7 g/dL (13.5-17.5); IMMATURE GRANULOCYTES 1.3 % (0-5); MCH 29.4 pg (26.0-34.0); MCHC 30.6 g/dL (31.0-37.0); MCV 96.1 fL (80.0-100.0); MEAN PLATELET VOLUME 11.2 fL (7.4-10.4); MONOCYTES 16.5 % (2-11); NEUTROPHILS 52.4 % (40-80); PLATELET COUNT 235 10x3/uL (130-400); RDW 17.5 % (11.5-14.5); WBC 5.6 10x3/uL (4.8-10.8)
[2017-11-10 07:13] LABS: ANION GAP 8.7 mmol/L (8-16); CALCIUM 8.5 mg/dL (8.5-10.1); CARBON DIOXIDE 28.3 mmol/L (21.0-32.0); CREATININE - SERUM 1.3 mg/dL (0.6-1.3)
[2017-11-10 08:19] VITALS: BP 150/80
[2017-11-10 16:06] VITALS: BP 133/51
[2017-11-11 08:25] VITALS: BP 158/60
[2017-11-11 12:38] VITALS: Ht 182.9 cm; Wt 74.3 kg
[2017-11-11 19:00] VITALS: BP 131/43
[2017-11-12 05:55] LABS: BASOPHILS 0.2 % (0-2); EOSINOPHILS 1.3 % (0-7); HEMATOCRIT 30.4 % (42.0-54.0); HEMOGLOBIN 9.3 g/dL (13.5-17.5); IMMATURE GRANULOCYTES 1.1 % (0-5); LYMPHOCYTES 21.2 % (15-50); MCH 29.7 pg (26.0-34.0); MCHC 30.6 g/dL (31.0-37.0); MCV 97.1 fL (80.0-100.0); MEAN PLATELET VOLUME 11.3 fL (7.4-10.4); MONOCYTES 23.7 % (2-11); NEUTROPHILS 52.5 % (40-80); PLATELET COUNT 203 10x3/uL (130-400); RBC 3.13 10x6/uL (4.20-6.10); RDW 17.6 % (11.5-14.5); WBC 5.5 10x3/uL (4.8-10.8)
[2017-11-12 06:20] LABS: ANION GAP 10.8 mmol/L (8-16); CALCIUM 8.5 mg/dL (8.5-10.1); CARBON DIOXIDE 29.7 mmol/L (21.0-32.0); CREATININE - SERUM 1.4 mg/dL (0.6-1.3); POTASSIUM - SERUM 5.5 mmol/L (3.5-5.1)
[2017-11-12 08:14] VITALS: BP 125/62
[2017-11-12 19:00] VITALS: BP 134/59
[2017-11-14 08:00] VITALS: BP 142/88
[2017-11-14 20:00] VITALS: BP 120/75
[2017-11-15 07:28] LABS: BASOPHILS 0.6 % (0-2); EOSINOPHILS 1.3 % (0-7); HEMATOCRIT 29.8 % (42.0-54.0); HEMOGLOBIN 9.2 g/dL (13.5-17.5); IMMATURE GRANULOCYTES 0.3 % (0-5); LYMPHOCYTES 22.2 % (15-50); MCH 29.7 pg (26.0-34.0); MCHC 30.9 g/dL (31.0-37.0); MCV 96.1 fL (80.0-100.0); MEAN PLATELET VOLUME 10.8 fL (7.4-10.4); MONOCYTES 15.6 % (2-11); PLATELET COUNT 189 10x3/uL (130-400); RDW 17.7 % (11.5-14.5); WBC 6.2 10x3/uL (4.8-10.8)
[2017-11-15 07:44] LABS: ANION GAP 10.9 mmol/L (8-16); CALCIUM 8.6 mg/dL (8.5-10.1); CARBON DIOXIDE 27.9 mmol/L (21.0-32.0); CREATININE - SERUM 1.5 mg/dL (0.6-1.3); POTASSIUM - SERUM 5.8 mmol/L (3.5-5.1)
[2017-11-15 08:00] VITALS: BP 181/83
[2017-11-15 19:00] VITALS: BP 136/76
[2017-11-16 07:04] LABS: ANION GAP 11.7 mmol/L (8-16); CALCIUM 8.4 mg/dL (8.5-10.1); CARBON DIOXIDE 27.9 mmol/L (21.0-32.0); CREATININE - SERUM 1.5 mg/dL (0.6-1.3); POTASSIUM - SERUM 5.6 mmol/L (3.5-5.1)
[2017-11-16 08:22] VITALS: BP 134/54
[2017-11-16 19:00] VITALS: BP 141/56
[2017-11-17 07:23] LABS: BASOPHILS 0.6 % (0-2); EOSINOPHILS 1.7 % (0-7); HEMATOCRIT 29.6 % (42.0-54.0); HEMOGLOBIN 9.1 g/dL (13.5-17.5); LYMPHOCYTES 22.5 % (15-50); MCH 29.4 pg (26.0-34.0); MCHC 30.7 g/dL (31.0-37.0); MCV 95.8 fL (80.0-100.0); MONOCYTES 17.8 % (2-11); NEUTROPHILS 57.4 % (40-80); PLATELET COUNT 170 10x3/uL (130-400); RBC 3.09 10x6/uL (4.20-6.10); RDW 17.4 % (11.5-14.5); WBC 5.4 10x3/uL (4.8-10.8)
[2017-11-17 07:43] LABS: ANION GAP 12.1 mmol/L (8-16); CALCIUM 8.6 mg/dL (8.5-10.1); CARBON DIOXIDE 27.6 mmol/L (21.0-32.0); CREATININE - SERUM 1.5 mg/dL (0.6-1.3); POTASSIUM - SERUM 5.7 mmol/L (3.5-5.1)
[2017-11-17 08:16] VITALS: BP 105/60
== END 2017-11-17 15:34 | disposition home health service (06) | DRG 91 ==
LOC: D.REHAB 14:40
PROVIDERS: Emergency Medicine
DX: G72.89 Other specified myopathies (principal); J18.9 Pneumonia, unspecified organism; I50.23 Acute on chronic systolic (congestive) heart failure; I13.0 Hypertensive heart and chronic kidney disease with heart failure and stage 1 through stage 4 chronic kidney disease, or unspecified chronic kidney disease; N17.9 Acute kidney failure, unspecified; J90 Pleural effusion, not elsewhere classified; N18.9 Chronic kidney disease, unspecified; E11.22 Type 2 diabetes mellitus with diabetic chronic kidney disease; J44.9 Chronic obstructive pulmonary disease, unspecified; R13.12 Dysphagia, oropharyngeal phase; I48.91 Unspecified atrial fibrillation; I25.10 Atherosclerotic heart disease of native coronary artery without angina pectoris; I73.9 Peripheral vascular disease, unspecified; R00.1 Bradycardia, unspecified; I35.0 Nonrheumatic aortic (valve) stenosis; G62.9 Polyneuropathy, unspecified; E03.9 Hypothyroidism, unspecified; E78.5 Hyperlipidemia, unspecified; E87.6 Hypokalemia; R60.9 Edema, unspecified; Z95.1 Presence of aortocoronary bypass graft; H35.30 Unspecified macular degeneration; Z89.512 Acquired absence of left leg below knee